=== PATIENT | female | born 1945 | race Caucasian/White ===

== ENCOUNTER 2018-02-18 17:00 | Outpatient (CLI) | payer MEDICARE, OTHER, SELFPAY ==
--- NOTE | 2018-02-18 16:34 | DI.DEXA_ITS ---
SYMPTOM/DIAGNOSIS: OSTEOPENIA, M85.88 DEXA SCAN: Dexa scan was performed according to the usual protocol. The findings for lumbar spine scanning are T score of -2.0. Findings for left hip scanning are T score of -.7 with left femoral neck T score of -2.0. Left forearm scanning shows T score of -1.4. CONCLUSION: Findings consistent with osteopenia according to the WHO criteria. Lateral vertebral scanogram shows no evidence of a vertebral compression fracture.
--- NOTE | 2018-02-18 16:34 | DI.MAMMO_ITS ---
SYMPTOMS/DIAGNOSIS: SCREENING, Z12.31 MAMMOGRAM: Mammograms were interpreted according to the usual protocol including computer analysis with CAD system, tomosynthesis and C view imaging. The breasts are heterogeneously dense. No dominant mass or clumped microcalcification is identified in either breast. Current examination is compared with the previous examinations including July 2016 and there has been no gross interval change in appearance in comparison with the previous studies. CONCLUSION: No specific evidence of malignancy at this time. Routine screening examinations are suggested at yearly intervals due to the family history of breast carcinoma. Category 1, breast density category C. MQSA ASSESSMENT OF FINDINGS: Negative. Category 1. Patient will receive a letter notifying them of these results. Bi-RADS category C. The breasts are heterogeneously dense, which may obscure small masses.
== END 2018-02-18 17:20 ==
PROVIDERS: PCP Family Medicine; Visit Provider Physician Assistant Medical
DX: M85.88 Other specified disorders of bone density and structure, other site (principal); Z12.31 Encounter for screening mammogram for malignant neoplasm of breast; Z80.3 Family history of malignant neoplasm of breast
CPT/HCPCS: 77063; 77067; 77080

== ENCOUNTER 2018-08-05 10:49 | Emergency (ER) | payer MEDICARE, OTHER, SELFPAY ==
[2018-08-05 11:01] VITALS: BP 149/67; PULSE 76; RESP 18; TEMP 36.6; O2SAT 99
--- NOTE | 2018-08-05 11:21 | DI.CT_ITS ---
SYMPTOMS/DIAGNOSIS: LEFT FLANK PAIN NONCONTRAST CT OF THE ABDOMEN AND PELVIS: Comparison is made with November,. There is moderate left hydronephrosis secondary to a 5 mm stone at the left ureterovesical junction. No additional urinary tract calculi are seen. There is no perinephric stranding. The visualized portions of the lung bases are clear. The liver, spleen, gallbladder, adrenals and pancreas are unremarkable. No bowel dilatation or inflammatory changes are seen. Diverticulosis is seen at the descending and sigmoid colon. The uterus and ovaries are unremarkable. IMPRESSION: Moderate left hydronephrosis secondary to a left 5 mm stone at the ureterovesical junction.
--- NOTE | 2018-08-05 11:23 | ED.GENADUL_ITS ---
Discharge Plan Disposition Patient Disposition: HOME Condition: Improving Discharge Details Chief Complaint: FlankPain Clinical Impression: Calculus of left ureter Primary Care Provider: Kathy Earl ED Provider: Artemio Bradford Home Meds and New Rx's Prescriptions: New cephalexin 500 mg tablet 500 mg PO TID 5 Days Qty: 15 RF: 0 Continued losartan 100 MG tablet 100 mg PO DAILY RF: 0 aspirin [Aspir-81] 81 MG tablet,delayed release (DR/EC) 81 mg PO DAILY RF: 0 chlorthalidone 25 MG tablet 25 mg PO DAILY RF: 0 Discharge Instructions Instructions: Kidney Stones (ED), How to Strain Your Urine (ED) Additional Instructions: Please strain your urine. Take antibiotics as prescribed We will ask our care management team to make you a follow-up appointment in urology clinic. Return to the emergency room for worsening pain, little bit of the fever, or any other acute concerns. Tylenol and/or ibuprofen as needed for pain Medical Decision Making 73-year-old female states she had the abrupt onset of left-sided flank pain radiating to groin this morning. Associated with increased urgency of and frequency of urination. She arrives afebrile with reassuring vital signs. She does not have a surgical abdomen. Differential diagnosis includes pyelonephritis, renal colic, bowel obstruction or ileus. Patient IV access established, given parenteral analgesia with ketorolac, a fluid bolus, referred for laboratory testing and CT images. Urinalysis negative nitrates, trace leuk esterase, 2 white blood cells as well as epithelial cells.; not consistent with acute infection. Labs otherwise reassuring but notable for elevated white blood cell count which may be stress demargination . Patient does have a 5 mm left UVJ stone with moderate hydronephrosis. She is minimally improved following the administration of fluids and ketorolac, states that she is ready for discharge. We discussed the findings of trace leuk esterase and 2 white blood cells in the urine, I feel I must cover her for UTI given the presence of left ureteral calculus. We will have her follow-up in urology clinic for recheck. She will be given a urine strainer for home. She is stable and improved Lab Data Lab results reviewed: Yes I reviewed the patient's lab results. Laboratory Results - last 24 hr 08/05/18 08/05/18 08/05/18 11:12 11:20 11:20 WBC 16.96 H RBC 4.54 Hgb 14.0 Hct 42.1 MCV 92.7 MCH 30.8 MCHC 33.3 RDW 13.5 Plt Count 264 MPV 10.0 Immature Gran % 0.3 Neutrophils % 88.3 Lymphocytes % 7.4 Monocytes % 3.7 Eosinophils % 0.1 Basophils % 0.2 Absolute Neutrophils 14.98 H Absolute Lymphocytes 1.26 Absolute Monocytes 0.63 Absolute Eosinophils 0.02 Absolute Basophils 0.03 Sodium Cancelled Potassium Cancelled Chloride Cancelled Carbon Dioxide Cancelled Anion Gap Cancelled BUN Cancelled Creatinine Cancelled Estimated GFR/1.73 m2 Cancelled Glucose Cancelled Calcium Cancelled Total Bilirubin Cancelled AST Cancelled ALT Cancelled Alkaline Phosphatase Cancelled Total Protein Cancelled Albumin Cancelled Urine Color Yellow Urine Clarity Clear Urine pH 6.5 Ur Specific [place] 1.020 Urine Protein Negative Urine Ketones Negative Urine Blood Moderate H Urine Nitrite Negative Urine Bilirubin Negative Urine Urobilinogen 0.2 Ur Leukocyte Esterase Trace H Urine RBC 10-20 H Urine WBC 0-2 Ur Epithelial Cells Moderate Urine Crystals Negative Urine Bacteria Few Urine Casts Negative Urine Mucus Moderate Ur Culture Indicated? No/sq. contamination Urine Glucose Negative HPI General Mode of arrival: ambulatory . Date/Time Provider Initiated Documentation: 08/05/18 11:15 . Limitations to Documentation: no limitations . Information obtained by: patient . History of Present Illness 73 year old F presents to the emergency department with the chief complaint of Left flank pain, described as moderate, Quality is described as aching, and is localized to the abdomen and left. Patient reports radiation to back. Patient started experiencing this hour(s) and it has been intermittent. No relieving factors improve symptom(s), No exacerbating factors reported . Patient notes no other symptoms.; denies fever/chills and nausea/vomiting. Patient did receive the following treatments prior to arrival, none Related Data Home Medications Medication Instructions Recorded Confirmed aspirin [Aspir-81] 81 mg PO DAILY 06/01/14 08/05/18 losartan 100 mg PO DAILY 06/01/14 08/05/18 chlorthalidone 25 mg PO DAILY 05/08/15 08/05/18 cephalexin 500 mg PO TID 5 Days #15 tab 08/05/18 Previous Rx's Medication Instructions Recorded cephalexin 500 mg PO TID 5 Days #15 tab 08/05/18 Allergies Allergy/AdvReac Type Severity Reaction Status Date / Time No Known Allergies Allergy Unverified 05/08/15 08:59 General Stated Complaint: FlankPain TREVON: 3 Review of Systems Review of Systems 8 systems reviewed and otherwise negative [facility] Social History Smoking and Tabacco status: Never Exam Narrative Exam Narrative: GEN: awake, alert, oriented 3. Pleasant, well groomed, interactive. HEAD: Normocephalic, atraumatic ENT: Mucous membranes moist, oropharynx unremarkable, External ear exam unremarkable EYES: PERRL, EOMI NECK: Full ROM, no CATINA, no menigismus CHEST/RESP: Nontender, clear to auscultation bilateral, no wheeze/rhonchi/rales CARDIOVASCULAR: RRR, no murmur, rub trish. 2+ Rad pulse bilateral ABDOMEN: Soft, nontender, no mass. +Bowel sounds. Minimal left flank tenderness EXT: Full ROM, no edema, no rash Neuro: Grossly normal neurologic exam, conversant, interactive. Psych: Speech fluent, thoughts congruent, affect normal Course Vital Signs Temperature 36.6 C 08/05/18 11:01 Pulse 76 08/05/18 11:01 Respiratory Rate 18 08/05/18 11:01 Blood Pressure 149/67 H 08/05/18 11:01 Pulse Oximetry 99 08/05/18 11:01 Temperature 36.6 C 08/05/18 11:01 Temperature Source Temporal Artery Scan 08/05/18 11:01 Pulse 76 08/05/18 11:01 Respiratory Rate 18 08/05/18 11:01 Respiratory Effort Non-Labored 08/05/18 11:04 Blood Pressure 149/67 H 08/05/18 11:01 Blood Pressure Position Sitting 08/05/18 11:01 Pulse Oximetry 99 08/05/18 11:01 Oxygen Delivery Method Room Air 08/05/18 11:01 Oxygen Flow Rate 0 08/05/18 11:01 Pain Level 8 08/05/18 11:12
[2018-08-05 11:26] LABS: Bilirubin Negative (Negative); Blood Moderate (Negative); Clarity Clear; Glucose Negative (Negative); Ketones Negative (Negative); Leukocyte Esterase Trace (Negative); Nitrite Negative (Negative); Urobilinogen 0.2 EU/dL (Up TO 0.2); pH 6.5 (5-8)
[2018-08-05] MEDS: Ketorolac 30 MG/ML VIAL 15 MG IVP (11:27)
[2018-08-05] MEDS: Normal Saline 1,000 ML 1000 ML IV (11:27)
[2018-08-05 11:31] LABS: Abs Immature Grans 0.05 k/cumm (0.0-0.09); Absolute Eosinophil Count 0.02 k/cumm (0.0-0.7); Absolute Lymphocyte Count 1.26 k/cumm (1.2-3.4); Basophils % 0.2; Eosinophils % 0.1; HCT 42.1 % (36.0-46.0); Immature Grans % 0.3; Lymphocytes % 7.4; Mean Corp. HGB Concentration 33.3 g/dL (32.0-36.0); Mean Corpuscular Hemoglobin 30.8 pg (27.0-33.0); Mean Corpuscular Volume 92.7 fL (80-95); Monocytes % 3.7; Neutrophils % 88.3; Platelet Count 264 x1000/uL (130-400); RBC 4.54 m/cumm (4.00-5.20); RBC Distribution Width 13.5 % (11.7-14.6); White Blood Cell Count 16.96 k/cumm (4.4-10.8)
[2018-08-05 11:36] LABS: Absolute Basophil Count 0.03 k/cumm (0.0-0.2); Absolute Monocyte Count 0.63 k/cumm (0.11-0.7); Absolute Neutrophil Count 14.98 k/cumm (1.2-6.7)
[2018-08-05 11:37] LABS: WBC 0-2 HPF (0-5)
[2018-08-05 11:38] LABS: Bacteria Few HPF (Negative); C & S Indicated? No/Sq. Contamination; Casts Negative LPF (Negative); Crystals Negative HPF (Negative); Epithelial Cells Moderate HPF (Negative); Mucus Moderate (Negative)
--- NOTE | 2018-08-05 12:08 | NUR.NOTE ---
Nursing Note: Off unit at CT
[2018-08-05 12:12] VITALS: BP 125/60; PULSE 76; RESP 18; TEMP 36.5; O2SAT 100
[2018-08-05 12:43] LABS: ALT 30 U/L (12-78); AST 21 U/L (15-37); Albumin 3.3 g/dL (3.4-5.0); Alkaline Phosphatase 105 U/L (46-116); Anion Gap 9.5 mmol/L (3-11); BUN 34 mg/dL (7-18); Bilirubin, Total 0.4 mg/dL (0.2-1.0); CO2 28.5 mmol/L (21.0-32.0); CREATININE 1.87 mg/dL (0.55-1.02); Calcium 8.2 mg/dL (8.5-10.1); Chloride 104 mmol/L (98-107); Estimated GFR 26.47 (mL/min/1.73m2); Glucose 111 mg/dL (70-100); Potassium 3.6 mmol/L (3.5-5.1); Sodium 142 mmol/L (136-145); Total Protein 6.6 g/dL (6.4-8.2)
--- NOTE | 2018-08-08 07:58 | PDOC.ERCMPRO ---
Care Management Progress Note 08/08-Dr. Bradford requested assistance with a urology f/u in L kidney stone. Referral faxed to [facility] this am.
== END 2018-08-05 13:05 | disposition home or self-care (01) ==
PROVIDERS: Emergency Provider Emergency Medicine; PCP Family Medicine
DX: N13.1 Hydronephrosis with ureteral stricture, not elsewhere classified (principal)
CPT/HCPCS: 36415; 80053; 96361; 96374; 99284; 74176; 81003; 81015; 85025; J1885

== ENCOUNTER → 2018-09-30 09:02 | Outpatient (BNVA) | payer MEDICARE, OTHER, SELFPAY | PROVIDERS: PCP Family Medicine; Visit Provider Nurse Practitioner Gerontology | DX: Z87.442 Personal history of urinary calculi (principal); N95.2 Postmenopausal atrophic vaginitis; I10 Essential (primary) hypertension | CPT/HCPCS: 99204; 99215 ==

== ENCOUNTER 2020-04-20 10:17 | Emergency (ER) | payer MEDICARE, OTHER, SELFPAY ==
[2020-04-20] VITALS (59 sets, daily range): BP systolic 87–120; BP diastolic 42–83; PULSE 63–93; RESP 15–27; TEMP 36.6; O2SAT 92–98
--- NOTE | 2020-04-20 10:24 | ED.GENADUL_ITS ---
Discharge Plan Disposition Patient Disposition: HOME Condition: Stable Discharge Details Clinical Impression: Acute respiratory infection, COVID-19 determined by clinical diagnostic criteria Primary Care Provider: Kathy Earl ED Provider: Maria Guadalupe Falcon Home Meds and New Rx's Prescriptions: Continued estradiol [Estrace] 0.01 % (0.1 mg/gram) cream 1 g VG .COMPLEX Qty: 42.5 RF: 4 losartan 100 MG tablet 100 mg PO DAILY RF: 0 aspirin [Aspir-81] 81 MG tablet,delayed release (DR/EC) 81 mg PO DAILY RF: 0 chlorthalidone 25 MG tablet 25 mg PO DAILY RF: 0 No Action dexamethasone [Decadron] 6 mg tablet 6 mg PO DAILY Qty: 5 RF: 0 enoxaparin 40 mg/0.4 mL syringe 40 mg subcut DAILY Qty: 12 RF: 0 Discharge Instructions Additional Instructions: Please return immediately to the emergency department if you develop any new or worsening symptoms, if your condition does not improve as expected, or if you become otherwise concerned. It is extremely important that you call soon as possible to make an appointment to be seen in follow-up for this visit by your primary care doctor. Your Covid results are pending. Based on your symptoms it is highly likely that you do have the coronavirus. It is extremely important that you isolate at home and wear a mask around any caregivers/family members. Please check your home oxygen frequently with the pulse oximeter that was provided to you. If your oxygen level dropped to 90% or below, please return immediately to the emergency department as we discussed. Please make sure you drink plenty of fluids. Stand Alone Forms: PENDING COVID-19 TESTING Referrals: Kathy Earl [Primary Care Provider] - Discharge Data Discharge Date/Time-TO BE ENTERED AT DEPARTURE: 04/20/20 16:59 Medical Decision Making Preeti Draper is a 75-year-old woman with a history of hypertension presenting to the emergency department with fever, vomiting, diarrhea 1 week ago after being in [place] for several days, symptoms resolved the next day, now with continued cough and shortness of breath with exertion in addition to generalized weakness and fatigue. O2 sat 93 to 95% on room air on initial examination, vitals otherwise within normal. Concern for likely Covid infection given constellation of symptoms, other pneumonia, possible pulmonary embolism. Doubt acute coronary syndrome. Exam/history is not consistent with sepsis, meningitis, acute intra-abdominal process. Plan for EKG, screening labs, judicious IV fluids, chest x-ray, telemetry. Will monitor and reassess. D-dimer negative when age-adjusted. No tachycardia. Will hold off on CT chest at this point given GFR less than 30, no tachycardia, no shortness of breath at rest, negative D-dimer. Chest x-ray negative. Labs reviewed, multiple abnormalities including hypokalemia, anion gap 12.4, creatinine 1.7. Labs consistent with Covid infection. Ambulatory pulse ox showed patient with O2 sats 95 to 97% on room air. Patient with sats greater than 95% on room air multiple reassessments. Steroids not indicated. I had a lengthy discussion with patient regarding risks/benefits of admission versus discharge to home with pulse ox and close follow-up. Patient prefers to be discharged to home. Patient given pulse oximeter, instructed on use and when to return precautions. I had a lengthy discussion with Patient regarding return to emergency department precautions, home care, isolation at home while awaiting coronavirus testing result, and importance of outpatient follow-up. Pt verbalizes understanding of the plan and is amenable. Patient discharged to home with clear plan for outpatient follow-up. All questions were answered. Disposition decision was made weighing the risks and benefits of hospitalization versus outpatient treatment, the risk for further decompensation, and the patient's wishes. Medical Records Medical records reviewed: Yes I reviewed the patient's medical records. Imaging Data Radiologic Study: Attestation: I personally reviewed and interpreted this imaging study as follows: Radiologist's impression: EXAM: XR PORTABLE CHEST AP CLINICAL HISTORY: SOB, PUI TECHNIQUE: 2D digital imaging was performed. COMPARISON: CR CHEST 2 VIEWS PA,LAT from 05/08/2015 FINDINGS: MEDIASTINUM: Normal. HEART: Normal. PULMONARY VASCULATURE: Normal. LUNGS: Clear. PLEURAL SPACE: No pleural effusion or pneumothorax. BONE:Within normal limits for the patient's age. OTHER FINDINGS:Normal. IMPRESSION: No acute pulmonary findings. Lab Data Lab results reviewed: Yes I reviewed the patient's lab results. Labs: Laboratory Tests Range/Units 04/20/20 04/20/20 04/20/20 11:10 11:10 11:10 WBC (4.4-10.8) 10^3/uL 6.23 RBC (3.93-5.22) 10^6/uL 4.72 Hgb (11.2-15.7) g/dL 14.6 Hct (36.0-46.0) % 42.6 MCV (80-95) fL 90.3 MCH (27.0-33.0) pg 30.9 MCHC (32.0-36.0) % 34.3 RDW (11.7-14.6) % 12.1 Plt Count (130-400) 10^3/uL 225 MPV (8.0-11.0) fL 9.9 Immature Gran % 0.6 Neutrophils % 78.6 Lymphocytes % 13.2 Monocytes % 7.4 Eosinophils % 0.0 Basophils % 0.2 Nucleated RBC % % 0 Absolute Neutrophils (1.2-6.7) 10^3/uL 4.90 Absolute Lymphocytes (1.2-3.4) 10^3/uL 0.82 L Absolute Monocytes (0.1-0.8) 10^3/uL 0.46 Absolute Eosinophils (0.0-0.7) 10^3/uL 0.00 Absolute Basophils (0.0-0.2) 10^3/uL 0.01 D-Dimer (<500) ng/mlFEU VBG Lactate (0.6-1.4) mmol/L 1.2 Sodium (136-145) mmol/L 137 Potassium (3.5-5.1) mmol/L 3.0 L Chloride (98-107) mmol/L 97 L Carbon Dioxide (21.0-32.0) mmol/L 27.6 Anion Gap (3-11) mmol/L 12.4 H BUN (7-18) mg/dL 38 H Creatinine (0.55-1.02) mg/dL 1.72 H Estimated GFR/1.73 m2 (mL/min/1.73m2) 28.99 Glucose (74-106) mg/dL 100 Calcium (8.5-10.1) mg/dL 8.5 Ferritin (8-252) ng/mL 484 H Total Bilirubin (0.2-1.0) mg/dL 0.5 AST (15-37) U/L 57 H ALT (14-59) U/L 57 Alkaline Phosphatase (46-116) U/L 100 Lactate Dehydrogenase (81-234) U/L 343 H Troponin I (<0.06) ng/mL < 0.05 Total Protein (6.4-8.2) g/dL 7.0 Albumin (3.4-5.0) g/dL 3.3 L Urine Color (Yellow) Urine Clarity (Clear) Urine pH (5-8) Ur Specific [place] (1.005-1.025) Urine Protein (Negative) mg/dL Urine Ketones (Negative) mg/dL Urine Blood (Negative) Urine Nitrite (Negative) Urine Bilirubin (Negative) Urine Urobilinogen (Up TO 0.2) EU/dL Ur Leukocyte Esterase (Negative) Urine RBC (0-2) HPF Urine WBC (0-5) HPF Ur Epithelial Cells (Negative) HPF Urine Crystals (Negative) HPF Urine Bacteria (Negative) HPF Urine Casts (Negative) LPF Urine Mucus (Negative) Urine Other (Negative) Ur Culture Indicated? Urine Glucose (Negative) mg/dL Range/Units 04/20/20 04/20/20 04/20/20 11:10 11:35 14:20 WBC (4.4-10.8) 10^3/uL RBC (3.93-5.22) 10^6/uL Hgb (11.2-15.7) g/dL Hct (36.0-46.0) % MCV (80-95) fL MCH (27.0-33.0) pg MCHC (32.0-36.0) % RDW (11.7-14.6) % Plt Count (130-400) 10^3/uL MPV (8.0-11.0) fL Immature Gran % Neutrophils % Lymphocytes % Monocytes % Eosinophils % Basophils % Nucleated RBC % % Absolute Neutrophils (1.2-6.7) 10^3/uL Absolute Lymphocytes (1.2-3.4) 10^3/uL Absolute Monocytes (0.1-0.8) 10^3/uL Absolute Eosinophils (0.0-0.7) 10^3/uL Absolute Basophils (0.0-0.2) 10^3/uL D-Dimer (<500) ng/mlFEU 699 H VBG Lactate (0.6-1.4) mmol/L Sodium (136-145) mmol/L Potassium (3.5-5.1) mmol/L Chloride (98-107) mmol/L Carbon Dioxide (21.0-32.0) mmol/L Anion Gap (3-11) mmol/L BUN (7-18) mg/dL Creatinine (0.55-1.02) mg/dL Estimated GFR/1.73 m2 (mL/min/1.73m2) Glucose (74-106) mg/dL Calcium (8.5-10.1) mg/dL Ferritin (8-252) ng/mL Total Bilirubin (0.2-1.0) mg/dL AST (15-37) U/L ALT (14-59) U/L Alkaline Phosphatase (46-116) U/L Lactate Dehydrogenase (81-234) U/L Troponin I (<0.06) ng/mL < 0.05 Total Protein (6.4-8.2) g/dL Albumin (3.4-5.0) g/dL Urine Color (Yellow) Yellow Urine Clarity (Clear) Sl cloudy Urine pH (5-8) 5.5 Ur Specific [place] (1.005-1.025) 1.020 Urine Protein (Negative) mg/dL Trace H Urine Ketones (Negative) mg/dL 15 H Urine Blood (Negative) Negative Urine Nitrite (Negative) Negative Urine Bilirubin (Negative) Negative Urine Urobilinogen (Up TO 0.2) EU/dL 0.2 Ur Leukocyte Esterase (Negative) Small H Urine RBC (0-2) HPF 3-5 H Urine WBC (0-5) HPF 10-20 H Ur Epithelial Cells (Negative) HPF Moderate Urine Crystals (Negative) HPF Negative Urine Bacteria (Negative) HPF Many Urine Casts (Negative) LPF Negative Urine Mucus (Negative) Negative Urine Other (Negative) Rare renal Ur Culture Indicated? No/sq. contamination Urine Glucose (Negative) mg/dL Negative ECG Data Attestation: I personally reviewed and interpreted this ECG (s) as follows: Interpretation: EKG shows normal sinus rhythm at 70, normal axis, artifact present with nonspecific ST changes, no STEMI, nondiagnostic EKG HPI General Mode of arrival: ambulatory . Date/Time Provider Initiated Documentation: 04/20/20 10:24 . Limitations to Documentation: no limitations . Information obtained by: patient, RN notes reviewed and old records reviewed . HPI Narrative: Preeti Draper is a 75-year-old woman with history of hypertension presenting to the emergency department with cough, malaise. Patient reports that she traveled to [place] 04/07 through 04/14. Patient reports that on 04/14 she developed generalized malaise, vomiting, diarrhea, fever, and cough. Patient reports that fever, vomiting, and diarrhea had resolved by the next day, but she has continued to have fatigue and general malaise. She reports intermittent cough. Patient denies shortness of breath at rest, but does note shortness of breath with exertion. Patient was supposed to have Covid testing yesterday and then again this morning, but had to cancel both appointments secondary to feeling generally unwell. Patient reports that she has been eating and drinking as usual at home. She denies pain, numbness, focal weakness, rash. Related Data Home Medications Medication Instructions Recorded Confirmed aspirin [Aspir-81] 81 mg PO DAILY 06/01/14 04/21/20 losartan 100 mg PO DAILY 06/01/14 04/21/20 chlorthalidone 25 mg PO DAILY 05/08/15 04/21/20 estradiol 1 g VG .COMPLEX #42.5 gm 11/14/18 04/21/20 dexamethasone [Decadron] 6 mg PO DAILY #5 tab 04/25/20 enoxaparin 40 mg SUBCUT DAILY #12 ml 04/25/20 Previous Rx's Medication Instructions Recorded estradiol 1 g VG .COMPLEX #42.5 gm 11/14/18 dexamethasone [Decadron] 6 mg PO DAILY #5 tab 04/25/20 enoxaparin 40 mg SUBCUT DAILY #12 ml 04/25/20 Allergies Allergy/AdvReac Type Severity Reaction Status Date / Time No Known Allergies Allergy Verified 04/21/20 00:02 General TREVON: 3 Review of Systems Narrative: Constitutional: Reports fatigue, generalized weakness, fever 1 week ago Eyes: denies eye pain ENT: denies ear pain, dental pain, sore throat Cardiovascular: denies chest pain Respiratory: Reports SOB on exertion, cough GI: denies abdominal pain, reports vomiting, diarrhea 1 week ago now resolved : denies flank pain MSK: denies back pain, neck pain, arthralgias, myalgias Skin: denies rash Neuro: denies headaches, numbness, focal weakness [facility] Medical History Hypertension 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, unilateral, left ear, 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 side (11/22/16) Vaginal atrophy Surgical History S/P appendectomy Family History Sister Breast cancer Social History Smoking/Tobacco Use Status: Never Smoking risk assessment performed?: Yes Alcohol Intake: current Alcohol Intake frequency: a few times a week Drug use: Never Substance use type: does not use current occupation: [employer] Do you feel safe at home: Yes Do you feel safe in your relationship?: Yes Exam Narrative Exam Narrative: Constitutional: well and [id number], pleasant, conversing normally HENT: head atraumatic/normocephalic/normal inspection, mucous membranes moist Eyes: conjunctiva normal, sclera normal, pupils 3mm b/l Neck: no stridor, normal ROM, trachea midline Chest: normal inspection Resp: normal work of breathing, LCTAB Cardio: normal rate, normal rhythm, no murmur appreciated GI: abdomen soft, non-tender, non-distended Back: normal inspection, no rash Skin: warm, dry, normal color, no rash Neuro: alert, not altered, grossly non-focal, normal tone Ext: no edema, no posterior calf tenderness to palpation Psych: normal mood, normal affect, normal behavior
[2020-04-20 11:25] LABS: Lactate 1.2 mmol/L (0.6-1.4)
[2020-04-20 11:32] LABS: Abs Immature Grans 0.04 10^3/uL (0.0-0.06); Absolute Basophil Count 0.01 10^3/uL (0.0-0.2); Absolute Lymphocyte Count 0.82 10^3/uL (1.2-3.4); Absolute Monocyte Count 0.46 10^3/uL (0.1-0.8); Basophils % 0.2; HCT 42.6 % (36.0-46.0); HGB 14.6 g/dL (11.2-15.7); Immature Grans % 0.6; Lymphocytes % 13.2; MCH 30.9 pg (27.0-33.0); MCHC 34.3 % (32.0-36.0); MCV 90.3 fL (80-95); MPV 9.9 fL (8.0-11.0); Monocytes % 7.4; Neutrophils % 78.6; Nucleated RBC 0 %; Platelet Count 225 10^3/uL (130-400); RBC 4.72 10^6/uL (3.93-5.22); RDW 12.1 % (11.7-14.6); WBC 6.23 10^3/uL (4.4-10.8)
[2020-04-20 11:43] LABS: Bilirubin Negative (Negative); Blood Negative (Negative); Clarity Sl Cloudy (Clear); Glucose Negative (Negative); Ketones 15 mg/dL (Negative); Leukocyte Esterase Small (Negative); Nitrite Negative (Negative); Urobilinogen 0.2 EU/dL (Up TO 0.2); pH 5.5 (5-8)
--- NOTE | 2020-04-20 11:45 | DI.RAD_ITS ---
EXAM: XR PORTABLE CHEST AP CLINICAL HISTORY: SOB, PUI TECHNIQUE: 2D digital imaging was performed. COMPARISON: CR CHEST 2 VIEWS PA,LAT from 05/08/2015 FINDINGS: MEDIASTINUM: Normal. HEART: Normal. PULMONARY VASCULATURE: Normal. LUNGS: Clear. PLEURAL SPACE: No pleural effusion or pneumothorax. BONE:Within normal limits for the patient's age. OTHER FINDINGS:Normal. IMPRESSION: No acute pulmonary findings. DATA REPOSITORY: RADIATION DOSE DELIVERED:
[2020-04-20] MEDS: Omnipaque 350 MG/ML 100 ML BTL IJ (11:49)
[2020-04-20 11:53] LABS: ALT 57 U/L (14-59); AST 57 U/L (15-37); Albumin 3.3 g/dL (3.4-5.0); Alkaline Phosphatase 100 U/L (46-116); Anion Gap 12.4 mmol/L (3-11); BUN 38 mg/dL (7-18); Bilirubin, Total 0.5 mg/dL (0.2-1.0); CO2 27.6 mmol/L (21.0-32.0); CREATININE 1.72 mg/dL (0.55-1.02); Calcium 8.5 mg/dL (8.5-10.1); Chloride 97 mmol/L (98-107); Estimated GFR 28.99 (mL/min/1.73m2); Ferritin 484 ng/mL (8-252); Glucose 100 mg/dL (74-106); Sodium 137 mmol/L (136-145)
[2020-04-20 11:54] LABS: Troponin I < 0.05 ng/mL (<0.06)
[2020-04-20 11:54] LABS: Epithelial Cells Moderate HPF (Negative); Other Cells Rare Renal (Negative)
[2020-04-20 11:55] LABS: Bacteria Many HPF (Negative); C & S Indicated? No/Sq. Contamination; Casts Negative LPF (Negative); Crystals Negative HPF (Negative); Mucus Negative (Negative)
[2020-04-20 12:04] LABS: LDH 343 U/L (81-234)
[2020-04-20] MEDS: Normal Saline 500 ML IV (12:20)
[2020-04-20 12:45] LABS: D-Dimer 699 ng/mlFEU (<500)
[2020-04-20] MEDS: Potassium Chloride 20 MEQ TABCR 40 MEQ PO (12:45)
[2020-04-20 14:48] LABS: Troponin I < 0.05 ng/mL (<0.06)
--- NOTE | 2020-04-20 16:00 | RT.EKG_ITS ---
APPROVED REPORT Exam: Resting ECG Patient Location: E HR:70 bpm ECG Measurements Heart Rate 70 AXIS WV 159 P 70 QRSd 89 QRS -7 QT 419 T 32 QTc 453 Conclusion Sinus rhythm...normal P axis, V-rate 60- 99 normal sinus rhythm at 70, normal axis, artifact present with nonspecific ST changes, no STEMI, nondi agnostic EKG
--- NOTE | 2020-04-20 21:31 | W.ED.FU ---
Date of service: 04/20/20 Follow Up Plan: Patient seen earlier today with symptoms concerning for COVID. She was sent home with portable pulse ox. called tonight stating she was having episodes of pulse ox that read 89-90% Most recent pulse ox was 94%. Patient does not feel short of breath. Lab called minutes after called us and reported a positive COVID swab from this morning. Discussed with . Asked to monitor patient closely and have her do ambulatory saturations. Insturctions to return if saturations consistently below 90 or if she feels short of breath, confused, any other concerns.
[2020-04-21 08:29] LABS: COVID-19 RT-PCR UVMMC Result Positive (Negative)
== END 2020-04-20 16:59 | disposition home or self-care (01) ==
PROVIDERS: Emergency Provider Student in an Organized Health Care Education/Training Program; PCP Family Medicine
DX: U07.1 COVID-19 (principal); J22 Unspecified acute lower respiratory infection; R05 Cough; R06.02 Shortness of breath; E87.6 Hypokalemia; E87.2 Acidosis; R94.4 Abnormal results of kidney function studies; I10 Essential (primary) hypertension
CPT/HCPCS: 80053; 93005; U0003; 71045; 81003; 81015; 82728; 83605; 83615; 84484; 85025; 85379; 93010; J3490

== ENCOUNTER 2020-04-20 23:45 | Inpatient (IN) | payer MEDICARE, OTHER, SELFPAY ==
--- NOTE | 2020-04-20 00:42 | DI.RAD_ITS ---
EXAM: XR PORTABLE CHEST AP CLINICAL HISTORY: COVID + with increase SOB TECHNIQUE: 2D digital imaging was performed. COMPARISON: CR XR PORTABLE CHEST AP from 04/20/2020 FINDINGS: MEDIASTINUM: Normal. HEART: Normal. PULMONARY VASCULATURE: Normal. LUNGS: Clear. PLEURAL SPACE: No pleural effusion or pneumothorax. BONE:Within normal limits for the patient's age. OTHER FINDINGS:Normal. IMPRESSION: No acute pulmonary findings. DATA REPOSITORY: RADIATION DOSE DELIVERED:
--- NOTE | 2020-04-20 23:45 | RT.EKG_ITS ---
APPROVED REPORT Exam: Resting ECG Patient Location: E HR:74 bpm ECG Measurements Heart Rate 74 AXIS VT 160 P 74 QRSd 91 QRS -19 QT 384 T 37 QTc 427 Conclusion Sinus rhythm...normal P axis, V-rate 60- 99 Normal Electrocardiogram
[2020-04-20 23:50] VITALS: BP 120/63; PULSE 77; RESP 18; TEMP 36.9; O2SAT 91
--- NOTE | 2020-04-20 23:56 | ED.GENADUL_ITS ---
Discharge Plan Disposition Patient Disposition: [facility] INPATIENT Condition: Fair Discharge Details Clinical Impression: COVID-19 virus infection, Hypoxemia Primary Care Provider: Kathy Earl ED Provider: Rob Carranza [place] Meds and New Rx's Prescriptions: No Action estradiol [Estrace] 0.01 % (0.1 mg/gram) cream 1 g VG .COMPLEX Qty: 42.5 RF: 4 losartan 100 MG tablet 100 mg PO DAILY RF: 0 aspirin [Aspir-81] 81 MG tablet,delayed release (DR/EC) 81 mg PO DAILY RF: 0 chlorthalidone 25 MG tablet 25 mg PO DAILY RF: 0 Medical Decision Making Patient presenting with increased shortness of breath with decrease saturations with activity at home, confirmed by EMS on their arrival. Known COVID positive based on test this morning. Had some concerning labs earlier. Plan to repeat labs and CXR. Monitor saturations here and titrate oxygen for saturations around 92%. Consider steroids. While here noted to have sats drop to 88% at rest. Elected to start on oxygen NC. Decadron ordered. SQ heparin started. CXR remains clear. D-dimer and ferritin going up. Kidney function stable but with GFR around 30. Will initiate awake proning and admit to hospitalist for further management. Medical Records Medical records reviewed: Yes I reviewed the patient's medical records. Lab Data Lab results reviewed: Yes I reviewed the patient's lab results. ECG Data Attestation: I personally reviewed and interpreted this ECG (s) as follows: Interpretation: see EKG HPI General Mode of arrival: EMS . Date/Time Provider Initiated Documentation: 04/20/20 23:55 . Limitations to Documentation: no limitations . Information obtained by: patient, RN notes reviewed and old records reviewed . HPI Narrative: Patient presents to ED by ambulance with increasing SOB at home. She was seen here earlier and presumed COVID patient. Her resting saturation and ambulatory saturations here were always greater than 92%. Her CXR was negative. Labs were a little concerning but it was felt that she could go home with portable pulse ox and isolate/monitor at home. Her called in tonight and I spoke to him. She was having some dips in her pulse ox at rest to 89-90%. I asked her to go up the stairs in her house and monitor her levels. She reports that consistently would get SOB going up the stairs, with heart rate going up to 110 and pusle ox going down to 86%. I suggested she should come back to ED. Ambulance was called because did not think he could get her here. Patient arrives in no distress. She did have fever tonight. She has increase cough. She denies chest pain. She denies leg pain or swelling. Sounds like she was ill last week while in [place], started to feel a little better and then got worse with cough, fever, SOB. Patient's COVID test from this morning in back and is positive. Related Data Home Medications Medication Instructions Recorded Confirmed aspirin [Aspir-81] 81 mg PO DAILY 06/01/14 04/21/20 losartan 100 mg PO DAILY 06/01/14 04/21/20 chlorthalidone 25 mg PO DAILY 05/08/15 04/21/20 estradiol 1 g VG .COMPLEX #42.5 gm 11/14/18 04/21/20 Previous Rx's Medication Instructions Recorded estradiol 1 g VG .COMPLEX #42.5 gm 11/14/18 Allergies Allergy/AdvReac Type Severity Reaction Status Date / Time No Known Allergies Allergy Verified 04/21/20 00:02 General TREVON: 3 Review of Systems Narrative: 03/16 Review of Systems completed and is negative except as stated above in HPI (Systems reviewed: Const, Eyes, ENT, Resp, CV, GI, , MSK, Skin, Neuro) [facility] Medical History Hypertension 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, unilateral, left ear, 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 side (11/22/16) Vaginal atrophy Surgical History S/P appendectomy Family History (Updated 10/09/18 @ 14:43 by Candelaria Avendaño NP) Sister Breast cancer Social History Smoking/Tobacco Use Status: Never Smoking risk assessment performed?: Yes Alcohol Intake: current Alcohol Intake frequency: a few times a week Drug use: Never Substance use type: does not use current occupation: Assembler [employer] - [employer] Do you feel safe at home: Yes Do you feel safe in your relationship?: Yes Exam Narrative Exam Narrative: Const: WDWN female in NAD. HEENT: NC/AT. Normal facial exam. Eyes: Normal conjunctiva and sclera. Neck: Supple. Trachea midline. Lungs: Normal respiratory effort. Cor: Good radial pulses. GI: Soft. NT/ND. No guarding or rebound. Neuro: A+O x 3. Normal speech, mentation, gait. Cranial nerves II - XII grossly intact. No gross motor or sensory deficit. Ext: No C/C/E. No calf tenderness. Skin: Warm and dry without rash.
[2020-04-21] VITALS (38 sets, daily range): BP systolic 85–116; BP diastolic 44–65; PULSE 60–87; RESP 16–28; TEMP 36–36.9; O2SAT 88–98
[2020-04-21 00:12] LABS: Abs Immature Grans 0.04 10^3/uL (0.0-0.06); Absolute Basophil Count 0.01 10^3/uL (0.0-0.2); Absolute Eosinophil Count 0.01 10^3/uL (0.0-0.7); Absolute Lymphocyte Count 1.01 10^3/uL (1.2-3.4); Absolute Monocyte Count 0.55 10^3/uL (0.1-0.8); Absolute Neutrophil Count 5.13 10^3/uL (1.2-6.7); Basophils % 0.1; Eosinophils % 0.1; HCT 39.7 % (36.0-46.0); HGB 13.9 g/dL (11.2-15.7); Immature Grans % 0.6; Lactate 0.8 mmol/L (0.6-1.4); MCH 31.2 pg (27.0-33.0); MPV 9.9 fL (8.0-11.0); Monocytes % 8.1; Neutrophils % 76.1; Nucleated RBC 0 %; Platelet Count 224 10^3/uL (130-400); RBC 4.46 10^6/uL (3.93-5.22); RDW-SD 39.2 fL; WBC 6.75 10^3/uL (4.4-10.8)
[2020-04-21 00:31] LABS: ALT 60 U/L (14-59); AST 59 U/L (15-37); Alkaline Phosphatase 103 U/L (46-116); Anion Gap 10.6 mmol/L (3-11); BUN 34 mg/dL (7-18); Bilirubin, Total 0.6 mg/dL (0.2-1.0); C-Reactive Protein 3.56 mg/dL (0.0-0.3); CO2 25.4 mmol/L (21.0-32.0); CREATININE 1.42 mg/dL (0.55-1.02); Calcium 8.1 mg/dL (8.5-10.1); Chloride 99 mmol/L (98-107); Estimated GFR 36.16 (mL/min/1.73m2); Glucose 98 mg/dL (74-106); LDH 278 U/L (81-234); Potassium 3.3 mmol/L (3.5-5.1); Sodium 135 mmol/L (136-145); Total Protein 6.6 g/dL (6.4-8.2)
[2020-04-21 00:32] LABS: Troponin I < 0.05 ng/mL (<0.06)
--- NOTE | 2020-04-21 00:47 | DI.VRAD_ITS ---
PROCEDURE INFORMATION: Exam: XR Chest, 1 View Exam date and time: 04/20/2020 12:30 AM Age: 75 years old Clinical indication: Patient HX: Covid positive patient with increased shortness of breath TECHNIQUE: Imaging protocol: XR of the chest Views: 1 view. COMPARISON: CR XR PORTABLE CHEST AP 04/20/2020 12:04 PM FINDINGS: Lungs: Again noted is mild central peribronchial thickening. No pulmonary airspace opacities are identified. There is no pulmonary vascular congestion. Pleural space: No layering pleural effusions are identified. Heart/Mediastinum: Heart size is normal. Bones/joints: Unremarkable. IMPRESSION: 1. Mild central peribronchial thickening again noted suggesting history of bronchitis. 2. No pulmonary airspace opacities identified. Dictated and Authenticated by: Latrell Sarah MD. Ordering:ALDO Rivas MD
[2020-04-21 00:49] LABS: D-Dimer 873 ng/mlFEU (<500)
[2020-04-21 00:56] LABS: Ferritin 529 ng/mL (8-252)
[2020-04-21] MEDS: Heparin 5,000 UNITS/ML VIAL 5000 UNITS SC ×2 (01:05→08:33)
[2020-04-21] MEDS: Dexamethasone 10 MG/ML VIAL 6 MG IVP (01:05)
[2020-04-21 01:24] LABS: Procalcitonin 0.1 ng/mL
--- NOTE | 2020-04-21 01:27 | HPE_ITS ---
Date of service: 04/21/20 Time of Service: 01:28 Assessment and Plan Assessment and plan (1) COVID-19 virus infection: Status: Acute Assessment and plan: Covid-19, with increasing O2 requirements. Will continue steroids, heparin and Remdesivir (note GFR just above cutoff for latter). Some concern for BP, will bolus fluids and hold ARB until such time as BP stabilizes. Reviewed ADs. Unable to fully process at this time but requests Full Code and would specifically accept ventilator if necessary. History of Present Illness History of Present Illness Chief Complaint: SOB Narrative: 75 female reports malaise and diarrhea one week [employer], then cough. Seen yesterday AM, concern for possible Covid, sent home on monitoring. Returns reporting increasing ROBERTS with sats dropping to 80s with exertion. In interim Coviid testing positive. In ER w/u of note for sats high 80s RA, CXR with peribronchial thickening, and labs of note for elevations of LDH, d-Dimer and ferritin. Patient given dexamethasone, heparin and is being ordered for Remdesivir. States she eels comfortable at present. Reports visit to [place] prior to illness to assist with the election Review of Systems All systems reviewed & are unremarkable except as noted in HPI and below PFSH Medical History Hypertension 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, unilateral, left ear, 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 side (11/22/16) Vaginal atrophy Surgical History S/P appendectomy Family History Sister Breast cancer Social History Smoking/Tobacco Use Status: Never Smoking risk assessment performed?: Yes Alcohol Intake: current Alcohol Intake frequency: a few times a week Drug use: Never Substance use type: does not use current occupation: [employer] - [employer] Do you feel safe at home: Yes Do you feel safe in your relationship?: Yes Meds Home Medications and Allergies Home Medications Medication Instructions Recorded Confirmed Type aspirin [Aspir-81] 81 mg PO DAILY 06/01/14 04/21/20 History losartan 100 mg PO DAILY 06/01/14 04/21/20 History chlorthalidone 25 mg PO DAILY 05/08/15 04/21/20 History estradiol 1 g VG .COMPLEX #42.5 gm 11/14/18 04/21/20 Rx Allergies Allergy/AdvReac Type Severity Reaction Status Date / Time No Known Allergies Allergy Verified 04/21/20 00:02 Exam Narrative Exam Narrative: 87/50, 74, 36.9, 20, 95% 2L. HEENT unremarkable; neck supple; lungs rales right base; heart occ ectopic, w/o MRG; abdomen soft and NT w/o HSM; extremities w/o edema; neuro Ox3, nonfocal Results Labs Result diagrams: 04/21/20 00:00 04/21/20 00:00 Labs: Laboratory Results - last 24 hr 04/21/20 04/21/20 04/21/20 00:00 00:00 00:00 WBC 6.75 RBC 4.46 Hgb 13.9 Hct 39.7 MCV 89.0 MCH 31.2 MCHC 35.0 RDW 12.0 Plt Count 224 MPV 9.9 Immature Gran % 0.6 Neutrophils % 76.1 Lymphocytes % 15.0 Monocytes % 8.1 Eosinophils % 0.1 Basophils % 0.1 Nucleated RBC % 0 Absolute Neutrophils 5.13 Absolute Lymphocytes 1.01 L Absolute Monocytes 0.55 Absolute Eosinophils 0.01 Absolute Basophils 0.01 D-Dimer VBG Lactate 0.8 Sodium 135 L Potassium 3.3 L Chloride 99 Carbon Dioxide 25.4 Anion Gap 10.6 BUN 34 H Creatinine 1.42 H Estimated GFR/1.73 m2 36.16 Glucose 98 Calcium 8.1 L Ferritin 529 H Total Bilirubin 0.6 AST 59 H ALT 60 H Alkaline Phosphatase 103 Lactate Dehydrogenase 278 H Troponin I < 0.05 C-Reactive Protein 3.56 H Total Protein 6.6 Albumin 3.0 L Procalcitonin 0.1 04/21/20 00:00 WBC RBC Hgb Hct MCV MCH MCHC RDW Plt Count MPV Immature Gran % Neutrophils % Lymphocytes % Monocytes % Eosinophils % Basophils % Nucleated RBC % Absolute Neutrophils Absolute Lymphocytes Absolute Monocytes Absolute Eosinophils Absolute Basophils D-Dimer 873 H VBG Lactate Sodium Potassium Chloride Carbon Dioxide Anion Gap BUN Creatinine Estimated GFR/1.73 m2 Glucose Calcium Ferritin Total Bilirubin AST ALT Alkaline Phosphatase Lactate Dehydrogenase Troponin I C-Reactive Protein Total Protein Albumin Procalcitonin Last Vital Signs Temp 36.9 C 04/20/20 23:50 Pulse 72 04/21/20 01:07 Resp 18 04/21/20 01:15 BP 95/49 L 04/21/20 01:07 Pulse Ox 95 04/21/20 01:15 COVID-19 Screening Have you, or household traveled for leisure in last 14 days?: Yes Had IN PERSON contact w/suspected or confirmed C-19 person: Yes
[2020-04-21] MEDS: Normal Saline 250 ML IV (03:22)
[2020-04-21] MEDS: Potassium Chloride 20 MEQ TABCR PO (04:02)
[2020-04-21 07:19] LABS: HCT 37.9 % (36.0-46.0); HGB 13.2 g/dL (11.2-15.7); MCHC 34.8 % (32.0-36.0); MPV 9.9 fL (8.0-11.0); Platelet Count 210 10^3/uL (130-400); RBC 4.26 10^6/uL (3.93-5.22); RDW 12.2 % (11.7-14.6); RDW-SD 39.8 fL
[2020-04-21 07:32] LABS: Anion Gap 11.1 mmol/L (3-11); BUN 35 mg/dL (7-18); CO2 27.9 mmol/L (21.0-32.0); CREATININE 1.54 mg/dL (0.55-1.02); Chloride 99 mmol/L (98-107); Estimated GFR 32.93 (mL/min/1.73m2); Glucose 147 mg/dL (74-106); Potassium 3.6 mmol/L (3.5-5.1); Sodium 138 mmol/L (136-145)
--- NOTE | 2020-04-21 08:17 | W.PM.PROGNOT ---
Date of Service Date of service: 04/21/20 Time of Service: 13:20 Subjective Subjective Interval history since last seen: Due to patient's COVID-19 positivity, her visit was done via phone while she was visualized through the glass door of the ICU. The patient states that she is feeling better. Her breathing is better. Her taste, but not her smell, may be coming back, she states. She denies headache, dizziness, chest pain, nausea, diarrhea. She is now on room air. Afebrile. Per nursing, lungs were clear. Has had dry cough. Hypotensive this am to the 90's, but SBP is now in 110s. Low UOP noted by nursing. The plan is to recheck labs in am. If LFTs/GFR ok, would continue on remdesivir. Continue decadron. I have added vitamin D3 4,000 iu daily, vitamin C 1000 mg daily, zinc, melatonin, pepcid. Because of low UOP and BP, we will finish the 1 L of IVF. Discussed DVT ppx with pharmacy - rx'ed intermediate dose lovenox (60 mg SC daily). Potential d/c home tomorrow. Objective Last Vital Signs Temp 36 C L 04/21/20 04:06 Pulse 66 04/21/20 05:01 Resp 20 04/21/20 05:54 BP 86/53 L 04/21/20 05:01 Pulse Ox 92 04/21/20 05:54 Laboratory Results - last 24 hr 04/21/20 04/21/20 04/21/20 00:00 00:00 00:00 WBC 6.75 RBC 4.46 Hgb 13.9 Hct 39.7 MCV 89.0 MCH 31.2 MCHC 35.0 RDW 12.0 Plt Count 224 MPV 9.9 Immature Gran % 0.6 Neutrophils % 76.1 Lymphocytes % 15.0 Monocytes % 8.1 Eosinophils % 0.1 Basophils % 0.1 Nucleated RBC % 0 Absolute Neutrophils 5.13 Absolute Lymphocytes 1.01 L Absolute Monocytes 0.55 Absolute Eosinophils 0.01 Absolute Basophils 0.01 D-Dimer VBG Lactate 0.8 Sodium 135 L Potassium 3.3 L Chloride 99 Carbon Dioxide 25.4 Anion Gap 10.6 BUN 34 H Creatinine 1.42 H Estimated GFR/1.73 m2 36.16 Glucose 98 Calcium 8.1 L Ferritin 529 H Total Bilirubin 0.6 AST 59 H ALT 60 H Alkaline Phosphatase 103 Lactate Dehydrogenase 278 H Troponin I < 0.05 C-Reactive Protein 3.56 H Total Protein 6.6 Albumin 3.0 L Procalcitonin 0.1 04/21/20 04/21/20 04/21/20 00:00 06:43 06:43 WBC 5.30 RBC 4.26 Hgb 13.2 Hct 37.9 MCV 89.0 MCH 31.0 MCHC 34.8 RDW 12.2 Plt Count 210 MPV 9.9 Immature Gran % Neutrophils % Lymphocytes % Monocytes % Eosinophils % Basophils % Nucleated RBC % Absolute Neutrophils Absolute Lymphocytes Absolute Monocytes Absolute Eosinophils Absolute Basophils D-Dimer 873 H VBG Lactate Sodium 138 Potassium 3.6 Chloride 99 Carbon Dioxide 27.9 Anion Gap 11.1 H BUN 35 H Creatinine 1.54 H Estimated GFR/1.73 m2 32.93 Glucose 147 H Calcium 8.0 L Ferritin Total Bilirubin AST ALT Alkaline Phosphatase Lactate Dehydrogenase Troponin I C-Reactive Protein Total Protein Albumin Procalcitonin
[2020-04-21] MEDS: Cholecalciferol (Vitamin D3) 1,000 UNIT TAB 4000 UNITS PO (08:32)
[2020-04-21] MEDS: Dexamethasone 4 MG TAB 6 MG PO (08:32)
[2020-04-21] MEDS: Aspirin E.C. 81 MG TABEC PO (08:32)
[2020-04-21] MEDS: Normal Saline Flush 10 ML SYR IVP (08:33)
[2020-04-21] MEDS: Ascorbic Acid 500 MG TAB PO ×2 (08:33→20:00)
[2020-04-21] MEDS: Normal Saline 1,000 ML 75 ML IV (08:33)
[2020-04-21] MEDS: Zinc Sulfate 220 MG TAB PO (08:39)
[2020-04-21] MEDS: Famotidine 20 MG TAB PO (08:40)
[2020-04-21 08:41] LABS: Creatine Kinase 67 U/L (26-192)
--- NOTE | 2020-04-21 11:33 | INITIAL_ITS ---
- If Service Date Differs Date of service: 04/21/20 Time of Service: 11:33 Care Management Initial Assess REASON FOR HOSPITALIZATION:: COVID with increase oxygen need PAST MEDICAL HISTORY/PAST SURGICAL HISTORY:: HTN, hearing loss, surgical hx of appendectomy PREVIOUS FUNCTIONAL STATUS/SOCIAL/FAMILY SUPPORTS:: Preeti is a 75 year old patient that lives with her spouse in [place], [place]. CURRENT FUNCTIONAL STATUS:: Preeti is currently on precautions for COVID. CM did review plan with primary nurse. Pt reviewed at discharge rounds and planning, CM will continue to monitor for needs and discharge planning. ADVANCE DIRECTIVES:: None on file CM will offer the forms Has patient been provided with info about the portal/API?: No Did the patient sign up for the portal?: No CODE STATUS:: Full Code INSURANCE COVERAGE / FINANCIAL ISSUES:: Medicare, [employer] life CURRENT HOME/COMMUNITY SERVICES/EQUIPMENT:: None at this time PRIMARY CARE PHYSICIAN:: Kathy Hoang POTENTIAL DISCHARGE NEEDS:: Preeti, will need primary care follow up scheduled prior to discharge. PATIENT/FAMILY EDUCATION NEEDS:: Discharge education, limitations and follow up plan of care including ask me three. ANTICIPATED BARRIERS TO DISCHARGE:: None identified TRANSPORTATION:: Via private car with family PLAN:: Preeti is receving IV fluids, close monitoring for labs and vital signs. She will be discharged home when medically ready. CM to continue to assess for ongoing discharge needs and coordinate disposition.
[2020-04-21] MEDS: Enoxaparin 60 MG/0.6 ML SYR SC (14:58)
--- NOTE | 2020-04-21 15:07 | PHA.REVIEW ---
Pharmacy Admission Review - Admission Clinical Review (Last Reviewed 04/21/20 @ 01:35 by Ritesh Padron MD) COVID-19 virus infection (Acute) Hypoxemia (Acute) No Known Allergies Allergy (Verified 04/21/20 00:02) Height 5 ft 4 in Weight 67.59 kg - Renal Dosing Renal Dosing: BUN 35 mg/dL (7-18) H 04/21/20 06:43 Creatinine 1.54 mg/dL (0.55-1.02) H 04/21/20 06:43 Medications needing adjustments: Intervened List of meds needing interventions: Initial dose of Remdesivir given in the ED, holding off today until CrCl improves (criteria for remdesivir use is >30ml/min -- drug dosing generally uses crcl vs gfr), ranitidine dose adjusted - Anticoagulation Anticoagulation: Hgb 13.2 g/dL (11.2-15.7) 04/21/20 06:43 Hct 37.9 % (36.0-46.0) 04/21/20 06:43 Plt Count 210 10^3/uL (130-400) 04/21/20 06:43 Creatinine 1.54 mg/dL (0.55-1.02) H 04/21/20 06:43 DVT Prohphylaxis: Reviewed Medications: Enoxaparin (Intermediate dose ordered per expert opinion/protocols in COVID-19 patients (also rec'd: 0.5mg/kg BID)) Therapeutic Anticoagulation: N/A Medications: Enoxaparin - Opiate Usage Evaluate Pain Scale/Pains Meds: Reviewed - Relevant Labs Sodium 138 mmol/L (136-145) 04/21/20 06:43 Potassium 3.6 mmol/L (3.5-5.1) 04/21/20 06:43 Chloride 99 mmol/L (98-107) 04/21/20 06:43 C-Reactive Protein 3.56 mg/dL (0.0-0.3) H 04/21/20 00:00 - DM Control DM Control: Glucose 147 mg/dL (74-106) H 04/21/20 06:43 - Heart Failure/MN Heart Failure/MN: Troponin I < 0.05 ng/mL (<0.06) 04/21/20 00:00 - BP Control BP Control: Blood Pressure [Left Arm] 99/49 Blood Pressure 98/48 Blood Pressure 104/65 Blood Pressure 116/44 Blood Pressure 100/61 Blood Pressure 85/64 Blood Pressure 92/49 Blood Pressure 97/46 Blood Pressure 89/49 Blood Pressure 86/53 Blood Pressure 95/52 Blood Pressure 99/49 If elevated: Reviewed - Qtc Review If Elevated: Reviewed (QTc 427) - IV to PO Switch IV Medications: Reviewed - Home Meds Home Med List reviewed: Reviewed Relevent Home Meds Not ordered & why?: chlorthalidone, losartan - very soft BP - Current meds Current Medication Order Review: Reviewed (anticipate continuation of remdesivir if kidney fxn improves, consider retiming enoxaparin along with AM or PM meds) - Comments Comments/Follow Ups: Monitor vitals, D-dimer (last lab: 873), BMP
[2020-04-22] VITALS (19 sets, daily range): BP systolic 99–122; BP diastolic 54–64; PULSE 57–81; RESP 14–22; TEMP 36–36.6; O2SAT 86–98
[2020-04-22 07:28] LABS: Abs Immature Grans 0.11 10^3/uL (0.0-0.06); Absolute Basophil Count 0.01 10^3/uL (0.0-0.2); Absolute Monocyte Count 0.78 10^3/uL (0.1-0.8); Absolute Neutrophil Count 7.33 10^3/uL (1.2-6.7); Basophils % 0.1; HCT 38.3 % (36.0-46.0); HGB 13.3 g/dL (11.2-15.7); Immature Grans % 1.2; Lymphocytes % 12.7; MCHC 34.7 % (32.0-36.0); MCV 89.3 fL (80-95); MPV 9.8 fL (8.0-11.0); Monocytes % 8.3; Neutrophils % 77.7; Nucleated RBC 0 %; Platelet Count 267 10^3/uL (130-400); RBC 4.29 10^6/uL (3.93-5.22); RDW 12.2 % (11.7-14.6); RDW-SD 40.2 fL; WBC 9.43 10^3/uL (4.4-10.8)
[2020-04-22 07:55] LABS: ALT 60 U/L (14-59); AST 55 U/L (15-37); Albumin 2.7 g/dL (3.4-5.0); Alkaline Phosphatase 87 U/L (46-116); Anion Gap 5.7 mmol/L (3-11); BUN 42 mg/dL (7-18); Bilirubin, Direct 0.11 mg/dL (0.00-0.20); Bilirubin, Total 0.4 mg/dL (0.2-1.0); C-Reactive Protein 2.47 mg/dL (0.0-0.3); CO2 25.3 mmol/L (21.0-32.0); CREATININE 1.36 mg/dL (0.55-1.02); Calcium 8.1 mg/dL (8.5-10.1); Chloride 104 mmol/L (98-107); Estimated GFR 38.01 (mL/min/1.73m2); Glucose 113 mg/dL (74-106); Magnesium 1.9 mg/dL (1.8-2.4); Potassium 3.6 mmol/L (3.5-5.1); Sodium 135 mmol/L (136-145); Total Protein 5.9 g/dL (6.4-8.2)
[2020-04-22 07:56] LABS: Troponin I < 0.05 ng/mL (<0.06)
[2020-04-22 08:09] LABS: ESR 35 mm/hr (0-30)
[2020-04-22 08:11] LABS: D-Dimer 572 ng/mlFEU (<500)
[2020-04-22] MEDS: Ascorbic Acid 500 MG TAB PO ×2 (08:35→21:11)
[2020-04-22] MEDS: Dexamethasone 4 MG TAB 6 MG PO (08:35)
[2020-04-22] MEDS: Zinc Sulfate 220 MG TAB PO (08:35)
[2020-04-22] MEDS: Aspirin E.C. 81 MG TABEC PO (08:35)
[2020-04-22] MEDS: Cholecalciferol (Vitamin D3) 1,000 UNIT TAB 4000 UNITS PO (08:35)
[2020-04-22] MEDS: Famotidine 20 MG TAB PO (08:35)
[2020-04-22] MEDS: Normal Saline Flush 10 ML SYR IVP (08:37)
[2020-04-22 09:48] LABS: Ferritin 583 ng/mL (8-252)
--- NOTE | 2020-04-22 13:10 | W.NUTRFU ---
Date of service: 04/22/20 Time of Service: 13:10 Nutritional Follow up NOTE: 75 year old female admitted with respiratory infection, Covid +. Following regular meal plan with excellent intake. Not at nutritional risk at this time. Will continue to follow. Time Spent in Nutritional Counseling and Treatment: 0
[2020-04-22] MEDS: Enoxaparin 60 MG/0.6 ML SYR SC (13:45)
--- NOTE | 2020-04-22 16:42 | PDOC.CMPRO ---
- If Service Date Differs Date of service: 04/22/20 Time of Service: 16:42 Care Management Progress Note S/O: CM reviewed clinical chart, and at interdisciplinary rounds. Anticipate Domenico will not need any services at time of discharge. She continues to require oxygen interminably. A: Preeti is a 75 year old patient admitted with COVID symptoms and started in the ICU. She is now on the medical surgical floor and remains under COVID precautions. P:Preeti is receiving IV steroids, antiviral for treatment of COVID, she remains under close monitoring for labs and vital signs. She will be discharged home when medically ready. CM to continue to assess for ongoing discharge needs and coordinate disposition.
--- NOTE | 2020-04-22 17:58 | W.PM.PROGNOT ---
Date of Service Date of service: 04/22/20 Time of Service: 17:58 Assessment and Plan Assessment and plan (1) COVID-19 virus infection: Status: Acute Assessment and plan: Continue decadron due to intermittent oxygen requirement, as well as remdesivir, carefully monitoring renal function. Continue vit D3, Vit C, zinc. Encourage IS/ambulation/proning within the room. Monitor continuous pulse ox tonight. (2) Hypoxemia: Status: Acute Assessment and plan: As above Also, will order ambulatory pulse ox for tomorrow. (3) Acute kidney injury superimposed on chronic kidney disease: Status: Acute Assessment and plan: The patient was taking her outpatient chlorthalidone and losartan when already hypotensive and in [facility] and without our knowledge. These have now been removed from her room. She is s/p 1 L of IVF yesterday. Cr is better today. No plans for further IVF at this time. (4) Hypotension: Status: Acute Assessment and plan: Probably related to dehydration + patient's own inappropriate use of antihypertensives. She is asymptomatic. As above (5) DVT prophylaxis: Status: Acute Assessment and plan: Intermediate dose lovenox (60 mg SC daily) (6) Discharge planning issues: Status: Acute Assessment and plan: Full code Possible discharge home tomorrow, depending on oxygen requirement. Subjective Subjective Interval history since last seen: Ms Draper states that she is feeling a little bit better today. She was completely unaware of requiring up to 3L of O2 last night - she was not short of breath. She denies dizziness, chest pain, nausea, diarrhea. She feels her senses of taste and smell are coming back somewhat. We talked about her needing to ambulate in the room, prone, and participate with IS. The patient apparently was still taking her own chlorthalidone and losartan in the hospital, even though they were not prescribed to her here, without our knowledge, at least through yesterday. Exam Narrative Exam Narrative: General: Pleasant elderly female, nontoxic appearing, no dyspnea/tachypnea/cyanosis, able to complete full sentences HEENT: EOMI, MMM Heart: RRR, no m/r/g Lungs: Very diminished breath sounds B Abdomen: soft, nontender, nondistended Extremities: no e/c/c BLE's Objective Last Vital Signs Temp 36.4 C L 04/22/20 15:16 Pulse 64 04/22/20 15:16 Resp 14 04/22/20 15:16 BP 99/54 L 04/22/20 15:16 Pulse Ox 93 04/22/20 15:16 Laboratory Results - last 24 hr 04/22/20 04/22/20 04/22/20 07:05 07:05 07:05 WBC 9.43 D RBC 4.29 Hgb 13.3 Hct 38.3 MCV 89.3 MCH 31.0 MCHC 34.7 RDW 12.2 Plt Count 267 MPV 9.8 Immature Gran % 1.2 Neutrophils % 77.7 Lymphocytes % 12.7 Monocytes % 8.3 Eosinophils % 0.0 Basophils % 0.1 Nucleated RBC % 0 Absolute Neutrophils 7.33 H Absolute Lymphocytes 1.20 Absolute Monocytes 0.78 Absolute Eosinophils 0.00 Absolute Basophils 0.01 ESR 35 H D-Dimer 572 H Sodium 135 L Potassium 3.6 Chloride 104 Carbon Dioxide 25.3 Anion Gap 5.7 BUN 42 H Creatinine 1.36 H Estimated GFR/1.73 m2 38.01 Glucose 113 H Calcium 8.1 L Magnesium 1.9 Ferritin 583 H Total Bilirubin 0.4 Conjugated Bilirubin 0.11 AST 55 H ALT 60 H Alkaline Phosphatase 87 Troponin I < 0.05 C-Reactive Protein 2.47 H Total Protein 5.9 L Albumin 2.7 L
[2020-04-23] VITALS (9 sets, daily range): BP systolic 98–128; BP diastolic 59–73; PULSE 54–74; RESP 14–18; TEMP 35.5–36.9; O2SAT 94–96
[2020-04-23 07:28] LABS: Abs Immature Grans 0.16 10^3/uL (0.0-0.06); Absolute Basophil Count 0.01 10^3/uL (0.0-0.2); Absolute Lymphocyte Count 1.45 10^3/uL (1.2-3.4); Absolute Monocyte Count 0.71 10^3/uL (0.1-0.8); Basophils % 0.1; HCT 36.4 % (36.0-46.0); HGB 12.5 g/dL (11.2-15.7); Immature Grans % 1.3; Lymphocytes % 11.9; MCH 31.1 pg (27.0-33.0); MCHC 34.3 % (32.0-36.0); MCV 90.5 fL (80-95); MPV 9.9 fL (8.0-11.0); Monocytes % 5.8; Neutrophils % 80.9; Nucleated RBC 0 %; Platelet Count 285 10^3/uL (130-400); RBC 4.02 10^6/uL (3.93-5.22); RDW 12.3 % (11.7-14.6); WBC 12.16 10^3/uL (4.4-10.8)
[2020-04-23 07:32] LABS: Absolute Neutrophil Count 9.84 10^3/uL (1.2-6.7)
[2020-04-23 07:53] LABS: ALT 71 U/L (14-59); AST 57 U/L (15-37); Albumin 2.7 g/dL (3.4-5.0); Alkaline Phosphatase 82 U/L (46-116); Anion Gap 7.6 mmol/L (3-11); BUN 44 mg/dL (7-18); Bilirubin, Direct 0.13 mg/dL (0.00-0.20); Bilirubin, Total 0.3 mg/dL (0.2-1.0); C-Reactive Protein 1.39 mg/dL (0.0-0.3); CO2 24.4 mmol/L (21.0-32.0); CREATININE 1.32 mg/dL (0.55-1.02); Calcium 8.2 mg/dL (8.5-10.1); Chloride 105 mmol/L (98-107); Estimated GFR 39.34 (mL/min/1.73m2); Glucose 94 mg/dL (74-106); LDH 246 U/L (81-234); Magnesium 1.8 mg/dL (1.8-2.4); Potassium 3.7 mmol/L (3.5-5.1); Sodium 137 mmol/L (136-145); Total Protein 5.8 g/dL (6.4-8.2)
[2020-04-23 08:06] LABS: D-Dimer 396 ng/mlFEU (<500)
[2020-04-23] MEDS: Aspirin E.C. 81 MG TABEC PO (08:24)
[2020-04-23] MEDS: Zinc Sulfate 220 MG TAB PO (08:24)
[2020-04-23] MEDS: Dexamethasone 4 MG TAB 6 MG PO (08:24)
[2020-04-23] MEDS: Famotidine 20 MG TAB PO (08:24)
[2020-04-23] MEDS: Ascorbic Acid 500 MG TAB PO ×2 (08:24→21:34)
[2020-04-23] MEDS: Cholecalciferol (Vitamin D3) 1,000 UNIT TAB 4000 UNITS PO (08:24)
[2020-04-23] MEDS: Normal Saline Flush 10 ML SYR IVP (08:28)
--- NOTE | 2020-04-23 10:43 | CMPROGNOTE_ITS ---
- If Service Date Differs Date of service: 04/23/20 Time of Service: 10:43 Care Management Progress Note S/O: Preeti remains on isolation for Covid-19 infection, so CM was unable to meet with her in person. Per provider, last night she had continuous pulse- oximetry monitoring and did not alarm at all. Her hypoxia has resolved and she is ambulating in the room. She is on day four of Remdesevir treatment and appears to be tolerating it well. A: Preeti is a 75 year old patient admitted with COVID symptoms and started in the ICU. She is now on the medical surgical floor and remains under COVID precautions. Last night she had continuous pulse-oximetry monitoring and did not alarm at all. Her hypoxia has resolved and she is ambulating in the room P:Preeti is receiving IV steroids, antiviral for treatment of COVID, she remains under close monitoring for labs and vital signs. She will be discharged home when medically ready. CM to continue to assess for ongoing discharge needs and coordinate disposition.
[2020-04-23 11:02] LABS: Ferritin 639 ng/mL (8-252)
[2020-04-23] MEDS: Enoxaparin 60 MG/0.6 ML SYR SC (14:19)
--- NOTE | 2020-04-23 15:25 | W.PM.PROGNOT ---
Date of Service Date of service: 04/23/20 Time of Service: 15:25 Assessment and Plan Assessment and plan (1) COVID-19 virus infection: Status: Acute Assessment and plan: Continue decadron due to intermittent oxygen requirement, as well as remdesivir, carefully monitoring renal function. Continue vit D3, Vit C, zinc. Encourage IS/ambulation/proning within the room. Monitor continuous pulse ox tonight. (2) Hypoxemia: Status: Resolved Assessment and plan: Hypoxemia appears to have resolved she is currently on room air not dyspneic with ADL or walking around her room. I have changed her continuous oxygen order to as needed and pulse oximetry will be changed from continuous to be checked with her routine vitals (3) Acute kidney injury superimposed on chronic kidney disease: Status: Acute Assessment and plan: Acute kidney injury appears to be improving. Creatinine is down to 1.32 and BUN is stable at 44. No need for further IV fluids as the patient is currently taking adequate amounts of oral fluids. Patient remains on off losartan and chlorthalidone. Blood pressures running on the low end of normal to slightly hypotensive but she is asymptomatic. Blood pressure at noon time was 98/68 and morning blood pressure was 102/59. I will keep her off her losartan for the time being. (4) Hypotension: Status: Acute Assessment and plan: Probably related to dehydration + patient's own inappropriate use of antihypertensives. She is asymptomatic. As above (5) DVT prophylaxis: Status: Acute Assessment and plan: Intermediate dose lovenox (60 mg SC daily) (6) Discharge planning issues: Status: Acute Assessment and plan: Full code Like the patient to finish out her course of remdesivir prior to discharge.. Subjective Subjective Interval history since last seen: Patient denies any dyspnea or chest pain nor any leg swelling or leg pain. She knows that with proning she started to cough up a little bit of mucus that is yellow-tinged. No hemoptysis. She remains afebrile. WBCs mildly elevated at 12,000 however she is on Decadron 6 mg daily. She is now on day 3 of Remdesivir. She had 200 mg loading dose on the first day today was the second of a 4-day course of 100 mg. She has been ambulating around the room and trying to be out of bed is much as possible. Exam Narrative Exam Narrative: Older female who is alert and oriented person place time circumstance in no respiratory distress able to talk in complete paragraphs without dyspnea. Lungs were difficult to auscultate as I was wearing a PAPR at the time. She seemed to have some bibasilar rales no rhonchi or wheezing. Heart regular rate and rhythm with soft systolic murmur and no gallop Abdomen soft and nontender Lower extremities without calf tenderness or swelling and no cyanosis Objective Last Vital Signs Temp 36.9 C 04/23/20 11:09 Pulse 64 04/23/20 11:09 Resp 18 04/23/20 11:09 BP 98/68 L 04/23/20 11:09 Pulse Ox 96 04/23/20 11:09 Laboratory Results - last 24 hr 04/23/20 04/23/20 04/23/20 07:08 07:08 07:08 WBC 12.16 H RBC 4.02 Hgb 12.5 Hct 36.4 MCV 90.5 MCH 31.1 MCHC 34.3 RDW 12.3 Plt Count 285 MPV 9.9 Immature Gran % 1.3 Neutrophils % 80.9 Lymphocytes % 11.9 Monocytes % 5.8 Eosinophils % 0.0 Basophils % 0.1 Nucleated RBC % 0 Absolute Neutrophils 9.84 H Absolute Lymphocytes 1.45 Absolute Monocytes 0.71 Absolute Eosinophils 0.00 Absolute Basophils 0.01 D-Dimer 396 Sodium 137 Potassium 3.7 Chloride 105 Carbon Dioxide 24.4 Anion Gap 7.6 BUN 44 H Creatinine 1.32 H Estimated GFR/1.73 m2 39.34 Glucose 94 Calcium 8.2 L Magnesium 1.8 Ferritin 639 H Total Bilirubin 0.3 Conjugated Bilirubin 0.13 AST 57 H ALT 71 H Alkaline Phosphatase 82 Lactate Dehydrogenase 246 H C-Reactive Protein 1.39 H Total Protein 5.8 L Albumin 2.7 L
[2020-04-24 03:24] VITALS: BP 103/57; PULSE 64; RESP 17; TEMP 36.8; O2SAT 95
[2020-04-24] MEDS: Aspirin E.C. 81 MG TABEC PO (08:39)
[2020-04-24] MEDS: Cholecalciferol (Vitamin D3) 1,000 UNIT TAB 4000 UNITS PO (08:39)
[2020-04-24] MEDS: Ascorbic Acid 500 MG TAB PO ×2 (08:39→22:03)
[2020-04-24 08:40] VITALS: BP 120/80; PULSE 85; RESP 20; TEMP 37.1; O2SAT 92
[2020-04-24] MEDS: Famotidine 20 MG TAB PO (08:40)
[2020-04-24] MEDS: Dexamethasone 4 MG TAB 6 MG PO (08:40)
[2020-04-24] MEDS: Zinc Sulfate 220 MG TAB PO (08:40)
--- NOTE | 2020-04-24 10:14 | PDOC.CMPRO ---
- If Service Date Differs Date of service: 04/24/20 Time of Service: 10:14 Care Management Progress Note S/O: Preeti remains on isolation for Covid-19 infection, so CM was unable to meet with her in person. She continues to improve and is oxygenating well on room air. She needs one more day of Remdesevir and will likely be ready for discharge, per provider. A: Preeti is a 75 year old patient admitted with COVID symptoms and started in the ICU. She is now on the medical surgical floor and remains under COVID precautions. Last night she had continuous pulse-oximetry monitoring and did not alarm at all. Her hypoxia has resolved and she is ambulating in the room P:Preeti is receiving IV steroids, antiviral for treatment of COVID, she remains under close monitoring for labs and vital signs. She will be discharged home when medically ready. CM to continue to assess for ongoing discharge needs and coordinate disposition.
[2020-04-24 11:48] VITALS: O2SAT 95
[2020-04-24 12:05] VITALS: BP 130/74; PULSE 76; RESP 20; TEMP 37.2; O2SAT 96
[2020-04-24] MEDS: Enoxaparin 60 MG/0.6 ML SYR SC (15:11)
[2020-04-24 15:12] VITALS: BP 138/68; PULSE 82; RESP 20; TEMP 36.5; O2SAT 96
--- NOTE | 2020-04-24 15:46 | W.PM.PROGNOT ---
Date of Service Date of service: 04/24/20 Time of Service: 15:46 Assessment and Plan Assessment and plan (1) COVID-19 virus infection: Status: Acute Assessment and plan: No need for further oxygen therapy as her O2 saturation has been 95 to 96% on room air. No need for overnight pulse oximetry. Continue remdesivir and Decadron. Today is day 4 out of 5 of her Remdesivir. She will complete her therapy tomorrow and be discharged home tomorrow afternoon. (2) Acute kidney injury superimposed on chronic kidney disease: Status: Acute Assessment and plan: Acute kidney injury appears to be improving. Patient is off IV fluids and drinking adequate orally. We will repeat her BMP in the morning. Blood pressure is doing better. She remains off losartan and chlorthalidone but will probably resume losartan at a reduced dose upon discharge. (3) Acute bronchitis: Status: Acute Qualifiers: Bronchitis organism: unspecified organism Qualified Code(s): J20.9 - Acute bronchitis, unspecified (4) DVT prophylaxis: Status: Acute Assessment and plan: Intermediate dose lovenox (60 mg SC daily) consider DOAC upon discharge (5) Discharge planning issues: Status: Acute Assessment and plan: Full code Like the patient to finish out her course of remdesivir prior to discharge.. Subjective Subjective Patient reports: no new complaints Interval history since last seen: Patient is coughing up a little bit of yellowish sputum but denies any shortness of breath or chest pain fever or rigors. Sense of taste and smell are coming back. Exam Narrative Exam Narrative: Exam deferred due to her positive Covid status and improving condition as well as my need to wear a PAPR which inhibited by exam Objective Last Vital Signs Temp 36.5 C 04/24/20 15:12 Pulse 82 04/24/20 15:12 Resp 20 04/24/20 15:12 BP 138/68 04/24/20 15:12 Pulse Ox 96 04/24/20 15:12
[2020-04-24] MEDS: Azithromycin 250 MG TAB 500 MG PO (16:55)
[2020-04-24] MEDS: Normal Saline Flush 10 ML SYR IVP (22:05)
[2020-04-24 22:19] VITALS: BP 126/73; PULSE 66; RESP 18; TEMP 36.6; O2SAT 97
[2020-04-25 03:01] VITALS: BP 108/59; PULSE 65; RESP 18; TEMP 36.6; O2SAT 93
[2020-04-25 07:10] LABS: Abs Immature Grans 0.36 10^3/uL (0.0-0.06); Absolute Lymphocyte Count 1.74 10^3/uL (1.2-3.4); Absolute Monocyte Count 0.94 10^3/uL (0.1-0.8); Basophils % 0.3; HCT 34.9 % (36.0-46.0); HGB 12.2 g/dL (11.2-15.7); Lymphocytes % 14.6; MCH 31.2 pg (27.0-33.0); MCV 89.3 fL (80-95); MPV 9.9 fL (8.0-11.0); Monocytes % 7.9; Neutrophils % 74.2; Nucleated RBC 0 %; Platelet Count 326 10^3/uL (130-400); RBC 3.91 10^6/uL (3.93-5.22); RDW 12.3 % (11.7-14.6); RDW-SD 40.4 fL; WBC 11.93 10^3/uL (4.4-10.8)
[2020-04-25 07:16] LABS: Absolute Basophil Count 0.04 10^3/uL (0.0-0.2); Absolute Neutrophil Count 8.85 10^3/uL (1.2-6.7)
[2020-04-25 07:19] LABS: Anion Gap 8.4 mmol/L (3-11); BUN 38 mg/dL (7-18); CO2 26.6 mmol/L (21.0-32.0); CREATININE 1.35 mg/dL (0.55-1.02); Calcium 8.3 mg/dL (8.5-10.1); Chloride 105 mmol/L (98-107); Estimated GFR 38.33 (mL/min/1.73m2); Glucose 93 mg/dL (74-106); Potassium 4.2 mmol/L (3.5-5.1); Sodium 140 mmol/L (136-145)
[2020-04-25] MEDS: Ascorbic Acid 500 MG TAB PO (08:35)
[2020-04-25] MEDS: Aspirin E.C. 81 MG TABEC PO (08:36)
[2020-04-25] MEDS: Cholecalciferol (Vitamin D3) 1,000 UNIT TAB 4000 UNITS PO (08:36)
[2020-04-25] MEDS: Azithromycin 250 MG TAB PO (08:36)
[2020-04-25] MEDS: Dexamethasone 4 MG TAB 6 MG PO (08:37)
[2020-04-25] MEDS: Famotidine 20 MG TAB PO (08:37)
[2020-04-25] MEDS: Zinc Sulfate 220 MG TAB PO (08:38)
[2020-04-25 08:40] VITALS: O2SAT 98
[2020-04-25 08:42] VITALS: BP 118/67; PULSE 74; RESP 20; TEMP 36.4; O2SAT 98
[2020-04-25 12:10] VITALS: BP 120/68; PULSE 70; RESP 18; TEMP 36.4; O2SAT 98
--- NOTE | 2020-04-25 13:14 | W.PM.DS.N ---
Date of service: 04/25/20 Time of Service: 13:14 DS: Diagnosis Discharge Diagnosis (1) COVID-19 virus infection: Status: Acute Asessment and Plan: Patient was treated with a 5-day course of remdesivir while hospitalized and started on Decadron 6 mg daily. She will finish 5 more days of Decadron for a total of 10 days. (2) Acute kidney injury superimposed on chronic kidney disease: Status: Acute (3) Acute bronchitis: Status: Acute Asessment and Plan: Patient was started on azithromycin while hospitalized and will be sent home on a 5-day course of azithromycin to 50 mg p.o. daily (4) DVT prophylaxis: Status: Acute Asessment and Plan: Patient was placed on enoxaparin 60 mg subcutaneously daily while hospitalized and per recommendation from hematology she will continue on 40 mg daily for 1 month post hospitalization. Discharge Plan Disposition Patient Disposition: HOME Condition: Improving Discharge Details Reason For Visit: COVID Admit Date/Time: 04/21/20 01:42 Admit Provider: Ritesh Padron Attending Provider: Ritesh Padron Primary Care Provider: Kathy Earl Hospital Course Hospital Course: 75-year-old female past medical history of hypertension who recently returned from [facility] and returned in [place] with a 1 week history of low-grade fever diarrhea and vomiting which subsequently developed into a cough and shortness of breath along w/ loss of sense of taste and smell. She was evaluated emergency room on April 20 underwent testing for SARS-CoV-2 at that time she has stable vital signs and normal oxygen saturation on room air and was discharged home with instructions to quarantine pending results of her SARS-CoV-2 test. She later returned to the emergency room that evening with increasing shortness of breath and was found to be hypoxemic and mildly hypotensive and her SARS-CoV2 test. Patient was given IV fluids supplemental oxygen and started on Decadron. She was subsequently started on Remdesivir. She was found to have acute on chronic kidney disease with elevated BUN of 34 creatinine 1.87 which improved with IV fluid hydration upon discharge her repeat BUN was down to 38 creatinine is down to 1.35. She subsequently developed some purulent sputum production but never had a fever. She was started on azithromycin for treatment of acute purulent bronchitis. Her chest x-ray is showed no acute pulmonary findings. Her hypoxemia resolved by the morning of April 22, 2020 and she was able to be taken off of supplemental oxygen. Her condition continued to improve and she finished out her course of remdesivir which included a loading dose of 200 mg on the first day and 100 mg intravenously daily for 4 more days. She was treated with Decadron 6 mg p.o. daily. She will be discharged on 5 more days of Decadron. She will continue 5 more days of azithromycin to her 50 mg p.o. daily. She was given an influenza vaccine on the day of discharge. She is advised to remain at home for the next 10 days and get subsequent follow-up SARS-CoV-2 PCR testing to ensure that she is cleared her infection. Patient's D-dimer on admission was slightly elevated at 699 but within the age-adjusted limits (for her age of 75 age-adjusted limit would be 740) however the D-dimer was repeated on April 21 April 22 April 23 and progressively declined to its final level of 396. Patient was treated prophylactically with enoxaparin and intermediate dose range of 60 mg subcutaneously daily. I discussed her case with hematology from [facility] regarding best recommendations for post discharge DVT prophylaxis in the setting of COVID-19. Systems Administrator indicated that there have been no studies so far weighing bleeding risk versus DVT and PE prevention. She thought it would be reasonable to treat the patient for a month on prophylactic enoxaparin at 30 to 40 mg subcutaneously daily. Home Meds and New Rx's Prescriptions: New dexamethasone [Decadron] 6 mg tablet 6 mg PO DAILY Qty: 5 RF: 0 azithromycin 250 mg tablet 250 mg PO DAILY 5 Days Qty: 5 RF: 0 enoxaparin 40 mg/0.4 mL syringe 40 mg subcut DAILY Qty: 12 RF: 0 No Action estradiol [Estrace] 0.01 % (0.1 mg/gram) cream 1 g VG .COMPLEX Qty: 42.5 RF: 4 losartan 100 MG tablet 100 mg PO DAILY RF: 0 aspirin [Aspir-81] 81 MG tablet,delayed release (DR/EC) 81 mg PO DAILY RF: 0 chlorthalidone 25 MG tablet 25 mg PO DAILY RF: 0 Discharge Instructions Instructions: COVID-19 (Coronavirus Disease 2019) (DC) Additional Instructions: remain at home for the next 10 days and then get repeat SARS-COV2 testing to ensure that you have cleared the infection. Activity:: Activity as Tolerated Equipment/Supplies:: No Equipment Needed Diet:: Normal Diet Discharge Orders Discharge Orders: Discharge Order (Routine); Ordered 04/25/20 Ordered By: Leonid Ramos DS: Summary Status at Discharge Functional status at discharge: independent ambulation Overall status at discharge: patient is progressing back to baseline Mental Status: mental status grossly normal Speech and Movement: speech and movement normal Mood: congruent mood Affect: normal affect Time Spent with Patient providing and/or coordinating discharge services: Greater than 30 minutes Specific discharge activities: Discussion with hematology advertising sales consultant, arranging prescriptions, discussing follow-up with the patient Exam Narrative Exam Narrative: Older thin female who is alert and oriented person place time circumstance in no respiratory discomfort. She is able to talk in complete sentences. lungs are clear to auscultation Heart regular rate and rhythm Extremities without peripheral cyanosis or edema Psych Mental Status: mental status grossly normal Speech and Movement: speech and movement normal Mood: congruent mood Affect: normal affect DS: Data Vitals/I&O Vitals and I&O: Vital Signs Temperature 36.4 C L 04/25/20 08:42 Temperature Source Tympanic 04/25/20 08:42 Pulse 74 04/25/20 08:42 Pulse Rhythm Regular 04/25/20 08:45 Pulse 69 04/21/20 15:44 Respiratory Rate 20 04/25/20 08:42 Respiratory Effort Non-Labored 04/25/20 08:45 Respiratory Depth Normal 04/25/20 08:45 Respiratory Pattern Normal 04/25/20 08:45 Blood Pressure 118/67 04/25/20 08:42 Blood Pressure Mean 60 04/21/20 14:01 Blood Pressure Position Left Lateral 04/21/20 04:06 Pulse Oximetry 98 04/25/20 08:42 Oxygen Delivery Method Room Air 04/25/20 08:42 Oxygen Flow Rate 0 04/25/20 08:42 Pain Level 0 04/25/20 08:42 Comment SAO2 STABLE ON ROOM AIR 04/22/20 08:44 Intake & Output 04/24/20 04/25/20 04/25/20 23:59 11:59 23:59 Intake Total 310 / 410 Balance 310 / 10 Intake: IV 10 / 110 Oral 300 / 300 Other: Urine Color Yellow Urine Appearance Clear Clear Urine Odor None Comment Pt using bathroom independently. Voiding Methods Toilet Data Completed and Pending Labs on day of discharge: Labs from last 24 hours 04/25/20 04/25/20 06:48 06:48 WBC 11.93 H RBC 3.91 L Hgb 12.2 Hct 34.9 L MCV 89.3 MCH 31.2 MCHC 35.0 RDW 12.3 Plt Count 326 MPV 9.9 Immature Gran % 3.0 Neutrophils % 74.2 Lymphocytes % 14.6 Monocytes % 7.9 Eosinophils % 0.0 Basophils % 0.3 Nucleated RBC % 0 Absolute Neutrophils 8.85 H Absolute Lymphocytes 1.74 Absolute Monocytes 0.94 H Absolute Eosinophils 0.00 Absolute Basophils 0.04 Sodium 140 Potassium 4.2 Chloride 105 Carbon Dioxide 26.6 Anion Gap 8.4 BUN 38 H Creatinine 1.35 H Estimated GFR/1.73 m2 38.33 Glucose 93 Calcium 8.3 L [facility] Medical History Hypertension 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
--- NOTE | 2020-04-25 13:34 | PDOC.CMDIS ---
- If Service Date Differs Date of service: 04/25/20 Time of Service: 13:35 LACE Index Scoring Tool - Questions: Length of Stay (in days): 4 - 6 Acuity (Admit via E.D.?): Yes E.D. Visits: 2 - Answers: Total Score: 9 Risk of Readmission: Low Risk Care Management Discharge Reason for Hospitalization: COVID with increase oxygen need Discharge Plan: Preeti states she is feeling better and is ready for discharge. She reports her spouse is picking her up today. She does not need oxygen at time of discharge. CM provided contact information for questions or concerns after discharge. Patient/Family Education Needs: Discharge education, limitations and follow up plan of care.
[2020-04-25] MEDS: Enoxaparin 60 MG/0.6 ML SYR SC (14:47)
== END 2020-04-25 15:05 | disposition home or self-care (01) | DRG 178 ==
LOC: ER 04-21 01:09 → ICU 04-21 02:31 → MS 04-22 09:43
PROVIDERS: Internal Medicine; Admitting Provider General Practice; Emergency Provider Emergency Medicine; PCP Family Medicine; Visit Provider General Practice
DX: U07.1 COVID-19 (principal); N17.9 Acute kidney failure, unspecified; J20.8 Acute bronchitis due to other specified organisms; R09.02 Hypoxemia; I95.9 Hypotension, unspecified; N18.9 Chronic kidney disease, unspecified; I12.9 Hypertensive chronic kidney disease with stage 1 through stage 4 chronic kidney disease, or unspecified chronic kidney disease; E86.0 Dehydration
CPT/HCPCS: 36415; 80048; 80053; 80076; 82550; 84145; 85027; 85652; 90662; 93005; 96360; 96365; 96372; 96375; 99222; 99232; 99239; 99285; NC; U0003; 71045; 81003; 81015; 82728; 83605; 83615; 83735; 84484; 85025; 85379; 86140; 93010; J1100; J1644; J1650; J3490; J8540

== ENCOUNTER 2020-12-23 21:19 | Emergency (ER) | payer MEDICARE, OTHER, SELFPAY ==
[2020-12-23 21:24] VITALS: BP 145/61; PULSE 78; RESP 18; TEMP 37; O2SAT 100
--- NOTE | 2020-12-23 21:41 | ED.GENADUL_ITS ---
Discharge Plan Disposition Patient Disposition: HOME Condition: Stable Discharge Details Clinical Impression: Abrasion of cornea, left Primary Care Provider: Kathy Earl ED Provider: Shweta Scott Home Meds and New Rx's Prescriptions: No Action estradiol [Estrace] 0.01 % (0.1 mg/gram) cream 1 g VG .COMPLEX Qty: 42.5 RF: 4 losartan 100 MG tablet 100 mg PO DAILY RF: 0 aspirin [Aspir-81] 81 MG tablet,delayed release (DR/EC) 81 mg PO DAILY RF: 0 chlorthalidone 25 MG tablet 25 mg PO DAILY RF: 0 dexamethasone [Decadron] 6 mg tablet 6 mg PO DAILY Qty: 5 RF: 0 enoxaparin 40 mg/0.4 mL syringe 40 mg subcut DAILY Qty: 12 RF: 0 Discharge Instructions Instructions: Corneal Abrasion (ED) Additional Instructions: Use erythromycin ointment 3 times daily x5 days. Use dark glasses as needed for light sensitivity. Try not to rub your eye as much as possible. Follow[facility]up with [facility] call on Saturday to schedule an appointment as soon as possible for further evaluation. Follow up with primary care provider in 3-5 days if needed. Return to ED sooner if any worsening pain not relieved by Tylenol ibuprofen, vomiting, confusion, loss of vision, or signs of head injury or concerns. Increase oral fluids. [facility] Address: [address] [place] [id number] Hours: Opens 8AM Mon Referrals: Kathy Earl [Primary Care Provider] - Medical Decision Making 75-year-old female presents to the ER chief complaint of left eye pain and irritation. Patient states she was out working in the [employer] this morning and was hit in the left eye with a branch. She reports intermittent sharp pains to the left eye she does wear corrective lenses. On initial exam left eye is tearful conjunctive is injected pupils are equal bilaterally and PERRLA. She did not take any Tylenol or ibuprofen prior to arrival. She does have a past medical history of COVID-19, acute kidney injury, bronchitis, hypertension she does take a daily aspirin. Denies any other associated symptoms or trauma. Fluorescein eye exam Terry lamp exam performed as noted in physical exam above. Small corneal abrasion noted. Patient was given erythromycin eye ointment and instructed to follow-up with [facility] for further evaluation. Patient verbalized underst anding. HPI General Mode of arrival: ambulatory . Date/Time Provider Initiated Documentation: 12/23/20 21:35 . Limitations to Documentation: no limitations . Information obtained by: patient and RN notes reviewed . HPI Narrative: 75-year-old female presents to the ER chief complaint of left eye pain and irritation. Patient states she was out working in the [employer] this morning and was hit in the left eye with a branch. She reports intermittent sharp pains to the left eye she does wear corrective lenses. On initial exam left eye is tearful conjunctive is injected pupils are equal bilaterally and PERRLA. She did not take any Tylenol or ibuprofen prior to arrival. She does have a past medical history of COVID-19, acute kidney injury, bronchitis, hypertension she does take a daily aspirin. Denies any other associated symptoms or trauma. R elated Data Home Medications Medication Instructions Recorded Confirmed aspirin [Aspir-81] 81 mg PO DAILY 06/01/14 12/23/20 losartan 100 mg PO DAILY 06/01/14 12/23/20 chlorthalidone 25 mg PO DAILY 05/08/15 12/23/20 estradiol 1 g VG .COMPLEX #42.5 gm 11/14/18 12/23/20 dexamethasone [Decadron] 6 mg PO DAILY #5 tab 04/25/20 enoxaparin 40 mg SUBCUT DAILY #12 ml 04/25/20 Previous Rx's Medication Instructions Recorded estradiol 1 g VG .COMPLEX #42.5 gm 11/14/18 dexamethasone [Decadron] 6 mg PO DAILY #5 tab 04/25/20 enoxaparin 40 mg SUBCUT DAILY #12 ml 04/25/20 Allergies Allergy/AdvReac Type Severity Reaction Status Date / Time No Known Allergies Allergy Verified 12/23/20 21:30 General Stated Complaint: EyeProblem TREVON: 4 Review of Systems All systems reviewed & are unremarkable except as noted in HPI and below Eyes Eyes: Reports system reviewed and no additional complaints, except as documented, Reports blurry vision, Reports irritation and Reports eye pain [facility] Medical History Hypertension 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, unilateral, left ear, 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 side (11/22/16) Vaginal atrophy Surgical History S/P appendectomy Family History Sister Breast cancer Social History Smoking/Tobacco Use Status: Never Smoking risk assessment performed?: Yes Alcohol Intake: current Alcohol Intake frequency: a few times a week Drug use: Never Substance use type: does not use 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 Corneal Abrasion, Uptake of dye 2. Injected, mild subconjuctival hemorrhage Course Vital Signs Vital signs: Vital Signs Temperature 37 C 12/23/20 21:24 Pulse 78 12/23/20 21:24 Respiratory Rate 18 12/23/20 21:24 Blood Pressure 145/61 H 12/23/20 21:24 Pulse Oximetry 100 12/23/20 21:24 Temperature 37 C 12/23/20 21:24 Temperature Source Skin 12/23/20 21:24 Pulse 78 12/23/20 21:24 Respiratory Rate 18 12/23/20 21:24 Respiratory Effort 12/23/20 21:31 Blood Pressure 145/61 H 12/23/20 21:24 Blood Pressure Position Sitting 12/23/20 21:24 Pulse Oximetry 100 12/23/20 21:24 Oxygen Delivery Method Room Air 12/23/20 21:24 Oxygen Flow Rate 0 12/23/20 21:24 Pain Level 4 12/23/20 21:24 Comment denies otc relief captain room service 12/23/20 21:24
[2020-12-23] MEDS: Balanced Salt Solution 15 ML BTL OP (21:42)
[2020-12-23] MEDS: Tetracaine 0.5% 4 ML BTL OP (21:42)
[2020-12-23] MEDS: Fluorescein STRIPS 100/BOX 1 MG OP (21:43)
[2020-12-23] MEDS: Erythromycin Ophth Oint 3.5 GM TUBE OS (22:15)
== END 2020-12-23 22:20 | disposition home or self-care (01) ==
PROVIDERS: Emergency Provider Registered Nurse Emergency; PCP Family Medicine
DX: S05.20XA Ocular laceration and rupture with prolapse or loss of intraocular tissue, unspecified eye, initial encounter (principal); W22.8XXA Striking against or struck by other objects, initial encounter
CPT/HCPCS: 99283

== ENCOUNTER 2021-04-22 14:23 | Outpatient (REF) | payer MEDICARE, OTHER, SELFPAY ==
--- NOTE | 2021-04-22 14:15 | PAPNONF_PTH ---
PATIENT: Preeti Draper LOC: [facility]#:[id number] AGE/SX: 76/F ROOM: RE04/22/[address]: Kiki Kamara : 1945 BED: DIS: 04/22/2021 SPEC #: [id number] RECD: 04/24/21 13:08 STATUS: REX REQ #: [id number] AWA: 04/22/21 14:[address]: Kiki Kamara DEPT: [facility] Cytology RECD BY: Paty Medeiros ENTERED: 04/24/21 13:09 SP TYPE: PAPNONF WALDEMARHR DR: Kathy Earl Tissues: 1 - BODY FLUID CYTO(SPUTUM/URINE)[facility] Procedures: BODY FLUID CYTO(URINE/SPUTUM) Comments: [id number] (TOTAL VOLUME = 35 ml) (35 ml URINE & 35 ml CYTOLYT ADDED)
== END 2021-04-22 14:24 | disposition home or self-care (01) ==
LOC: NCHCN 14:23
PROVIDERS: PCP Family Medicine; Visit Provider Physician Assistant Medical
DX: N39.0 Urinary tract infection, site not specified (principal)
CPT/HCPCS: 87086; 88104

== ENCOUNTER 2021-10-12 00:15 | Outpatient (CLI) | payer MEDICARE, OTHER, SELFPAY ==
--- NOTE | 2021-10-12 | DI.MAMMO_ITS ---
Exam(s) MAMMO SCREENING EXAM: MAMMO SCREENING CLINICAL HISTORY: SCREENING TECHNIQUE: Mammograms were interpreted according to the usual protocol including computer analysis w [employer]raj[employer] CAD system, tomosynthesis and C-view imaging. COMPARISON: FINDINGS: The breasts are heterogeneously dense. No dominant mass or clumped microcalcification is identified in either breast. The current examination is compared with previous examinations including February 2018 and there has been no gross interval change in appearance in comparison with the prior studies. IMPRESSION: No specific evidence of malignancy at this time. Routine screening examinations are suggested at yea rly intervals due to the family history of breast carcinoma. BI-RADS Category 1 - Negative Breast Density - Category C - Heterogeneously dense
--- NOTE | 2021-10-12 15:30 | DI.DEXA_ITS ---
Exam(s) XR DEXA BONE DENSITY W/WO SINAN EXAM: XR DEXA BONE DENSITY W/WO SINAN CLINICAL HISTORY: OSTEOPENIA, M85.88 TECHNIQUE: COMPARISON: No exams were available for comparison FINDINGS: DEXA scan was performed according to the usual protocol. Please see the accompanying data sheets. Left hip scanning shows T-score -0.9 with left femoral neck T-score -2.0. Prior examination of 2017 showed left hip T-score -0.7. Lumbar spine scanning shows T-score -2.3. Prior examination of 2018 showed lumbar T-score -2.0. Left forearm scanning shows T-score -1.3. Prior examination of 2018 showed forearm T-score -1.4. IMPRESSION: Measurements are consistent with osteopenia according to WHO criteria. Lateral vertebral scanogram shows no evidence of a vertebral compression fracture. RADIATION DOSE DELIVERED: Total DLP
== END 2021-10-12 00:35 ==
PROVIDERS: PCP Family Medicine; Visit Provider Nurse Practitioner Family
DX: Z12.31 Encounter for screening mammogram for malignant neoplasm of breast (principal); Z80.3 Family history of malignant neoplasm of breast; M85.88 Other specified disorders of bone density and structure, other site
CPT/HCPCS: 77063; 77067; 77080

== ENCOUNTER → 2021-12-29 07:37 | Outpatient (BNVA) | payer MEDICARE, OTHER, SELFPAY | PROVIDERS: PCP Family Medicine; Referring Provider Family Medicine; Visit Provider Surgery | DX: Z86.010 Personal history of colon polyps (principal); Z12.11 Encounter for screening for malignant neoplasm of colon | CPT/HCPCS: 99242 ==

== ENCOUNTER → 2022-05-23 07:24 | Outpatient (BNVA) | payer MEDICARE, OTHER, SELFPAY | PROVIDERS: PCP Family Medicine; Referring Provider Family Medicine; Visit Provider Surgery | DX: Z12.11 Encounter for screening for malignant neoplasm of colon (principal) ==

== ENCOUNTER 2022-06-12 08:57 | Day surgery (SDC) | payer MEDICARE, OTHER, SELFPAY ==
--- NOTE | 2022-06-11 21:12 | W.PM.DSUDISC ---
Date of service: 06/12/22 Time of Service: 11:00 Discharge Plan Disposition Patient Disposition: Home Condition: Good Discharge Details Reason For Visit: colonoscopy Attending Provider: Kyle Hayes Primary Care Provider: Kathy Earl Home Meds and New Rx's Prescriptions: Continued cholecalciferol (vitamin D3) 10 mcg (400 unit) capsule 10 mcg PO DAILY estradiol [Estrace] 0.01 % (0.1 mg/gram) cream 1 g VG .COMPLEX Qty: 42.5 4RF Rx Instructions: 1 g two to three times weekly losartan 100 MG tablet 100 mg PO DAILY aspirin [Aspir-81] 81 MG tablet,delayed release (DR/EC) 81 mg PO DAILY magnesium L-lactate 84 mg tablet extended release 1 tab PO DAILY Label Comments: Take 1 tablet by mouth once a day Discontinued polyethylene glycol 3350 17 gram/dose powder 238 g PO ONCE Qty: 238 0RF Rx Instructions: take per colonoscopy instructions bisacodyl [Dulcolax (bisacodyl)] 5 mg tablet,delayed release (DR/EC) 5 mg PO ONCE Qty: 4 0RF Rx Instructions: take per colonoscopy instructions Discharge Instructions Instructions: Diverticulitis (GEN), Diverticulosis (DC), Diverticulosis Diet (GEN) Additional Instructions: 1. If tolerated, consume a soft, low fiber diet for 1-2 days. [address] Do not drive, drink alcohol, operate machinery, make critical decisions, or do activities that require coordination or balance for 24 hours. 3. Because air was put into your colon during the procedure, expelling air from your rectum (passing gas or farting) is normal. 4. You may not have a bowel movement for 1-3 days because of the colonoscopy prep. This is normal. 5. Go directly to the emergency room if you notice any of the following: Develop chills (warm to touch), or if you have a thermometer and your temperature is above 101 Difficulty breathing or difficultly swallowing Persistent vomiting Severe abdominal pain, other than gas cramps Severe chest pain Black, tarry stools Any bleeding ? exceeding one tablespoon 6. Call your physician if the site where your intravenous was started becomes red, swollen, painful, and warm to touch. 7. Your physician has reviewed your pre-procedure medications. Please continue to take those medications as previously ordered. You will be given specific information/education regarding any changes to your medications before leaving. Activity:: Activity as Tolerated Diet:: As Tolerated Discharge Orders Discharge Orders: Discharge Order (Routine); Ordered 06/11/22 Ordered By: Kyle Hayes DS: Diagnosis Discharge Diagnosis (1) Screening for colon cancer: Status: Acute Asessment and Plan: Preeti, I performed a complete colonoscopy today. The quality of the prep was excellent. You have extensive diverticulosis, focused mostly around the sigmoid colon (which is extremely common) but also involving other segments of the large intestine as well. The main focus of treatment for diverticulosis focuses on maintaining a balanced diet that is rich in fiber, and staying well-hydrated to avoid any constipation. I did find 1 area of polypoid changes. I performed a polypectomy. I will contact you when the results of that biopsy are available.
--- NOTE | 2022-06-11 21:15 | COLE_ITS ---
Date of service: 06/12/22 Time of Service: 11:02 Colonoscopy Report Date of procedure: 06/12/22 Pre-op diagnosis general: Screening colonoscopy Post-op diagnosis procedure note: other (Diverticulosis, sigmoid colon polyp) Procedure: Colonoscopy with polypectomy Surgeon: Kyle Hayes Anesthesia Type: General:No Airway Estimated blood loss (mL): 10 Pathology: other (Colon polyp at 25 cm) Complications: None Disposition: same day Indications: Preeti is a 77-year-old woman following up for her next screening colonoscopy Prep: Miralax/Dulcolax Procedure Start Time: 10: Procedure End Time: 10:46 Retraction Time: 14 Findings: Extensive, and cavernous sigmoid diverticulosis. Mild pandiverticulosis. Sigmoid colon polyp around 25 cm Procedure Description: After the induction of monitored anesthetic care, and with the patient in left lateral decubitus position, I began by performing an external anorectal exam.? Perineum and skin were normal, as was the anal verge.? There was no evidence of external hemorrhoids.? Next, I performed a digital rectal exam.? I did not appreciate any abnormal findings.? Next, I advanced a colonoscope into the rectal vault.? I performed retroflexion.? There was a fibrosed old internal hem orrhoid.? Using insufflation, I then advanced the colonoscope beyond the rectal folds and into the sigmoid colon before advancing towards the cecum.? There was extensive sigmoid diverticulosis, with large diverticula. The quality of the prep was excellent.? The diverticulosis extended beyond the sigmoid colon, and involves other areas of the descending, transverse, and descending colons. The scope was noted to be in the cecum by identification of the ileocecal valve and appendiceal orifice.? I then began withdrawing the colonoscope using repeated irrigation as necessary for full evaluation of the colonic mucosa. Around 5 cm from the anal verge I identified a 0.5 cm polyp. This was immediately adjacent to a large diverticula. ?It appeared sessile cold forcep polypectomy in character. ?I was able to remove this with a . ?I examined the site, and there was minimal bleeding. ?Once this was completed, I continued to withdraw the scope and examine the remainder of the colonic mucosa.?Once the scope was withdrawn to the level of the rectum, great care was taken to examine portions of the rectal folds.? Finally, the scope was withdrawn and the patient was brought to the same-day surgery recovery unit as the anesthetic wore off. ?The findings and instructions were shared with the patient prior to discharge.
[2022-06-12 09:16] VITALS: BP 129/71; PULSE 84; RESP 16; TEMP 36.4; O2SAT 96
--- NOTE | 2022-06-12 09:42 | ANES.PREOP_ITS ---
General Info Date of Service Date Performed: 06/12/22 Height: 5 ft 4 in Weight: 78.075 kg Body Mass Index (BMI): 29.5 Surgical Procedure: Operation Date: 06/12/22 10:05 Proposed Procedure Side Surgeon p Colonoscopy Kyle Hayes MD Meds Allergies and Home Medications Allergies Allergy/AdvReac Type Severity Reaction Status Date / Time nitrofurantoin Allergy Intermediate unknown Verified 06/11/22 14:39 Home Medication Medication Instructions Recorded aspirin 81 mg tablet,delayed 81 mg PO DAILY 06/01/14 release (Aspir-) losartan 100 mg tablet 100 mg PO DAILY 06/01/14 estradiol 0.01% (0.1 mg/gram) 1 g vaginal .COMPLEX #42.5 grams 11/14/18 vaginal cream (Estrace) cholecalciferol (vitamin D3) 10 10 mcg PO DAILY 12/29/21 mcg (400 unit) capsule magnesium L-lactate 84 mg 1 tab PO DAILY 06/11/22 tablet,extended release Current Visit Medications: Current Medications Generic Name Dose Route Start Last Admin Trade Name Guillermoq PRN Reason Stop Dose Admin Hyoscyamine Sulfate 0.125 mg 06/11/22 21:17 Hyoscyamine 0.125 Mg Sl/Oral/Chew SL DIRECTED PRN Ringer's Solution 1,000 mls @ 80 mls/hr 06/12/22 06:00 IV 07/11/22 23:59 [facility] IV Miscellaneous Supplies 1 each 06/12/22 06:00 Iv Access IV 07/11/22 23:59 DIRECTED KEVIN Ondansetron HCl 4 mg 06/11/22 21:17 Ondansetron 4 Mg/2 Ml Vial IVP Q4H PRN PRN Nausea / Vomiting Sodium Chloride 0 ml 06/12/22 06:00 Normal Saline Flush 10 Ml Syr IV 07/11/22 23:59 PRN PRN Sodium Chloride 0 ml 06/12/22 06:00 Normal Saline 10 Ml Vial IJ 07/11/22 23:59 DIRECTED PRN Sterile Water 0 ml 06/12/22 06:00 Water,Injection,Sterile 10 Ml Vial IJ 07/11/22 23:59 DIRECTED PRN PFSH Active Problems Active Problems: Problem Status Onset Code Adenomatous colon polyp D12.6 Cardiac murmur R01.1 Screening for colon cancer Z12.11 Medical History Medical History Abrasion of cornea, left Acute bronchitis Acute kidney injury superimposed on chronic kidney disease COVID-19 determined by clinical diagnostic criteria DVT prophylaxis Hypertension 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) Osteopenia Sensorineural hearing loss, unilateral, left ear, 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 side (11/22/16) Vaginal atrophy Surgical History Surgical History S/P appendectomy Tobacco Smoking/Tobacco Use Status: Never Alcohol Alcohol Intake: current Alcohol intake frequency: a few times a week Substance Use Substance use: Never Substance use type: does not use Vital Signs and Lab Results Vital Signs Most Recent Vital Signs in EMR: Most Recent Vital Signs Temp Pulse Resp BP Pulse Ox 36.4 C L 84 16 129/71 96 06/12/22 09:16 06/12/22 09:16 06/12/22 09:16 06/12/22 09:16 06/12/22 09:16 Lab Results Blood Type / Crossmatch: No Data to Display Complete Blood Count: No Data to Display Complete Metabolic Panel: No Data to Display Liver Function Panel: No Data to Display Coagulation Panel: No Data to Display Cardiac Panel: No Data to Display Arterial Blood Gas: No Data to Display Venous Blood Gas: No Data to Display Pancreas Panel: No Data to Display Thyroid Panel: No Data to Display Infectious Disease: No Data to Display Blood Cultures: No Data to Display Toxicology Panel: No Data to Display Imaging and Studies Imaging and Studies Study information below may be from another EMR and interpreted by another provider. Please see original notes in EMR for more complete details. EKG Summary: Sinus rhythm...normal P axis, V-rate 60- 99 Normal Electrocardiogram 04/22 Anesthesia Assessment and Plan Anesthesia History Personal History: No History of Anesthesia Complications Family History: No Family History of Anesthesia Complications Exercise Tolerance Exercise Tolerance: Metabolic Equivalents>4 Pertinent Negatives Pertinent Negatives: No Symptoms of GERD Cardiac & Pulmonary Exam Cardiac Exam: Normal S1/S2 Heart Sounds Pulmonary Exam: Clear Bilateral Breath Sounds Implantable Cardiac Device Does patient have a Pacemaker or an ICD?: No Airway Exam Known Difficult Airway: No Mallampati Class: 2 Mouth Opening: Normal (> 3cm) Thyromental Distance: Greater than 3 cm Neck Range of Motion: Full ROM Neck Circumference: Normal Teeth Condition: Normal Dentition ASA Classification ASA Score: ASA 2 Emergency Case?: No NPO Status NPO Status: NPO Clears >2 hours, Solids >8 hours Anesthesia Plan Resuscitation Status: Full Code Anesthesia Technique: General Anesthesia Airway Planned: Natural Airway Monitors Used: Standard Monitors Preoperative Comments:: Pt reports fainting last night in the trip bathroom to bed. Probably prep and dehydration. No chest pain, no previous history
[2022-06-12] MEDS: Lactated Ringers 1,000 ML 80 ML IV (09:50)
[2022-06-12 10:04] VITALS: BMI 29.5
--- NOTE | 2022-06-12 10:43 | BOWEL_PTH ---
PATIENT: Preeti Draper LOC: [facility] U#:[id number] AGE/SX: 77/F ROOM: RE06/12/[address]: Kyle Hayes MD : 1945 BED: DIS: 06/12/2022 SPEC #: [id number] RECD: 06/12/22 12:18 STATUS: REX REQ #: [id number] AWA: 06/12/22 10:[address]: Kyle Hayes DEPT: Surgical Specimen RECD BY: Paty Medeiros ENTERED: 06/12/22 12:19 SP TYPE: Bowel OTHR DR: Kathy Earl Tissues: 1 - BIOPSY BOWEL Procedures: GROSS AND MICRO LEVEL 4 Comments: [id number]
[2022-06-12 11:01] VITALS: BP 100/59; PULSE 77; RESP 16; TEMP 36.1; O2SAT 98
--- NOTE | 2022-06-12 11:17 | W.ANESPOSTOP ---
Postoperative Evaluation Date, Time and Location Date Performed: 06/12/22 Time Performed: 11:12 Patient Location: Day Surgery Unit Vital Signs Most Recent Imported Vital Signs: Most Recent Vital Signs Temp Pulse Resp BP Pulse Ox 36.1 C L 77 16 100/59 L 98 06/12/22 11:01 06/12/22 11:01 06/12/22 11:01 06/12/22 11:01 06/12/22 11:01 Pain Score Most Recent Pain Score: Most Recent Pain Score Pain Level 0 06/12/22 11:01 Assessment Mental Status: Awake (Alert & Oriented to Patient Baseline) Airway and Respiratory Function: Patent airway with normal (patient baseline) respiratory exam Cardiovascular Function: Hemodynamically Stable Hydration Status: Adequately Hydrated Nausea & Vomiting: No Nausea or Vomiting Pain: Pt. Denies Any Pain Peripheral Nerve Block: Patient did not receive a nerve block
[2022-06-12 11:20] VITALS: BP 128/67; PULSE 74; RESP 16; TEMP 36.5; O2SAT 97
== END 2022-06-12 11:55 | disposition home or self-care (01) ==
PROVIDERS: PCP Family Medicine; Visit Provider Surgery
PROC: 0DJD8ZZ Inspection of Lower Intestinal Tract, Via Natural or Artificial Opening Endoscopic (ICD-10-PCS; CPT 45378; principal; 2022-06-12 10:00)
DX: Z12.11 Encounter for screening for malignant neoplasm of colon (principal); K63.5 Polyp of colon; K57.30 Diverticulosis of large intestine without perforation or abscess without bleeding
CPT/HCPCS: 45380; 88305

== ENCOUNTER 2024-10-25 14:20 | Emergency (ER) | payer MEDICARE, OTHER, SELFPAY ==
[2024-10-25 14:30] VITALS: BP 155/71; PULSE 71; RESP 20; TEMP 36.7; O2SAT 95
--- NOTE | 2024-10-25 14:45 | DI.RAD_ITS ---
Exam(s) XR HAND RT COMPLETE EXAM: XR HAND RT COMPLETE CLINICAL HISTORY: fall, 5th metacarpal pain. TECHNIQUE: 2D digital imaging was performed. Three views. COMPARISON: No exams were available for comparison FINDINGS: BONES: No acute fracture is present. No bony destructive lesion is seen. JOINTS: No dislocation present. There are severe degenerative changes at the first carpal metacarpal joint. degenerative changes are also seen at the scaphoid trapezium trapezoid joints and the interp halangeal joints of the index and middle fingers. SOFT TISSUE: Normal. IMPRESSION: Degenerative changes. No acute abnormality. DATA REPOSITORY: RADIATION DOSE DELIVERED:
--- NOTE | 2024-10-25 14:56 | ED.GENADUL_ITS ---
Discharge Plan Disposition Patient Disposition: Home Condition: Stable Discharge Details Clinical Impression: Contusion of right hand Primary Care Provider: Jesica Desai ED Provider: Zunilda Giles Home Meds and New Rx's Prescriptions: No Action cholecalciferol (vitamin D3) 10 mcg (400 unit) capsule 10 mcg PO DAILY estradiol [Estrace] 0.01 % (0.1 mg/gram) cream 1 g VG .COMPLEX Qty: 42.5 4RF Rx Instructions: 1 g two to three times weekly losartan 100 MG tablet 100 mg PO DAILY aspirin [Aspir-81] 81 MG tablet,delayed release (DR/EC) 81 mg PO DAILY Discharge Instructions Instructions: Minor Contusion ED Additional Instructions: You were seen in the emergency department today for evaluation of a hand injury. In our department you had a full physical examination performed, and had an x- ray that did not show any sign of fractures. You were given a splint which you can wear for comfort, though it is safe for you to use your hand. Please continue to use ice and elevation for swelling. Please use therapeutic dosing of Tylenol (acetaminophen) & Advil (ibuprofen) in an alternating fashion as follows: Take 1000mg of Tylenol every 6 hours without missing doses- that is 4 times per day. [place] in between the Tylenol doses, take 600mg of Advil also on a 6 hour schedule, that is also 4 times per day. With this strategy, you will be taking something for fever/pain as often as every 3 hours. The daily maximum dosing of Tylenol is 4000mg, and the daily maximum dosing of Advil is 2400mg. Please note that some common cold medications & prescription pain medications may contain acetaminophen and you need to read OTC drug labels and factor that in to maximum daily doses. Please follow-up with your primary care provider in the next few days to discuss this visit and any symptoms that change, worsen, or persist. Thank you for allowing us to be part of your care. Discharge Data Discharge Date/Time-TO BE ENTERED AT DEPARTURE: 10/25/24 16:16 HPI General Mode of arrival: ambulatory . Date/Time Provider Initiated Documentation: 10/25/24 14:40 . Limitations to Documentation: no limitations . Information obtained by: patient and old records reviewed . HPI Narrative: This is a 79-year-old female patient presenting for evaluation of a right hand injury. The patient reports that 1 week ago she was hiking, and slipped in the mud, falling forward onto an outstretched hand. She states that she had pain in the lateral aspect of her hand that has not improved over the last few days, despite using heat in the area. She reports she has not had any other medications or interventions prior to arrival today. She initially had some discomfort in her elbow and side but these symptoms have resolved. She did not have any preceding dizziness, loss of consciousness, chest pain, and has otherwise been in her normal state of health. Related Data Home Medications ?Medication ?Instructions ?Recorded ?Confirmed aspirin 81 mg tablet,delayed 81 mg PO DAILY 06/01/14 10/25/24 release (Aspir-) losartan 100 mg tablet 100 mg PO DAILY 06/01/14 10/25/24 estradiol 0.01% (0.1 mg/gram) 1 g vaginal .COMPLEX #42.5 grams 11/14/18 10/25/24 vaginal cream (Estrace) cholecalciferol (vitamin D3) 10 10 mcg PO DAILY 12/29/21 10/25/24 mcg (400 unit) capsule Previous Rx's ?Medication ?Instructions ?Recorded estradiol 0.01% (0.1 mg/gram) 1 g vaginal .COMPLEX #42.5 grams 11/14/18 vaginal cream (Estrace) Allergies Allergy/AdvReac Type Severity Reaction Status Date / Time nitrofurantoin Allergy Intermediate unknown Verified 10/25/24 14:29 General Stated Complaint: Orthopedic TREVON: 4 Exam Narrative Exam Narrative: Gen: Awake and alert, in no apparent distress HEENT: Non-icteric sclera Neck: Supple Lungs: No apparent respiratory distress, normal respiratory effort. CV: Appears well perfused Abdomen: Non-distended MSK: Moves 4 extremities without apparent limitation in ROM. Tenderness to palpation over the right fifth metacarpal region without deformity or overlying skin break. No ecchymosis, patient has full range of motion against resistance of the fingers and thumb in all directions. She has no evidence of rotation or asymmetry with flexion of the fingers towards the palm. Her wrist and elbow are atraumatic, no anatomical snuffbox tenderness. CSM's intact distal to this injury. Skin: Visualized skin without rashes, cyanosis. Neuro: Normal Gait, no obvious focal deficits or facial asymmetry. Speaks in fu ll, clear sentences. Psych: Appropriate for situation. Course Vital Signs Vital signs: Vital Signs Temperature 36.7 C 10/25/24 14:30 Pulse 71 10/25/24 14:30 Respiratory Rate 20 10/25/24 14:30 Blood Pressure 155/71 H 10/25/24 14:30 Pulse Oximetry 95 10/25/24 14:30 Temperature 36.7 C 10/25/24 14:30 Temperature Source Oral 10/25/24 14:30 Pulse 71 10/25/24 14:30 Respiratory Rate 20 10/25/24 14:30 Blood Pressure 155/71 H 10/25/24 14:30 Blood Pressure Position Sitting 10/25/24 14:30 Pulse Oximetry 95 10/25/24 14:30 Oxygen Delivery Method Room Air 10/25/24 14:30 Oxygen Flow Rate 0 10/25/24 14:30 Pain Level 5 10/25/24 14:30 Medical Decision Making This is a 79-year-old female patient presenting for evaluation of a hand injury. Reassuringly, this is an isolated injury and the patient had a mechanical fall without concern for medical etiology such as syncope, vasovagal syndrome, seizure, CVA, arrhythmia, or ACS. Differential includes but is not limited to fracture, dislocation, contusion, sprain/strain. No evidence for neurovascular derangement. We obtained an x-ray, patient was offered Tylenol and ibuprofen for management of pain which she declined, but she did receive an ice pack and a pillow for elevation. I have reviewed the x-ray imaging, which shows no evidence of fracture, dislocation, or other acute osseous abnormality. She does have some degenerative changes. I provided her with an Velcro ulnar splint for support, and counseled her to use conservative management including Tylenol, ibuprofen, ice and elevation. At this time, the patient has had a full medical evaluation and is safe for discharge to home. They are hemodynamically stable, ambulatory, and tolerating PO. They are understanding of the follow-up plan and return precautions. They left our facility without incident. Zunilda Giles MD Quality:SDOH Health Related Social Needs: No Data to Display PFSH All Active Problems (Updated 10/25/24 @ 15:57 by Zunilda Giles MD) Contusion of right hand (Acute) Impacted cerumen, bilateral (Acute) Central perforation of tympanic membrane, right ear (Acute) Sensorineural hearing loss, bilateral (Acute) Inflammatory polyps (Acute) Adenomatous colon polyp (Acute) Cardiac murmur (Acute) Screening for colon cancer (Acute) Medical History (Updated 10/25/24 @ 15:57 by Zunilda Giles MD) Osteopenia Abrasion of cornea, left Acute bronchitis DVT prophylaxis Acute kidney injury superimposed on chronic kidney disease COVID-19 determined by clinical diagnostic criteria 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, unilateral, left ear, 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 side (11/22/16) Vaginal atrophy Hypertension Surgical History (Updated 06/18/23 @ 16:32 by Oliver Sanchez MD) History of tympanoplasty History of tonsillectomy and adenoidectomy History of colonoscopy (~06/2022) S/P appendectomy Family History Sister Breast cancer Social History Smoking/Tobacco Use Status: Never Smoking risk assessment performed?: Yes Alcohol Intake: current Alcohol Intake frequency: 0-2 drinks per day Alcohol type: hard liquor Drug use: Never Substance use type: does not use current occupation: [employer] Teacher - [employer] Do you feel safe at home: Yes Do you feel safe in your relationship?: Yes
--- NOTE | 2024-10-25 15:32 | DI.VRAD_ITS ---
PROCEDURE INFORMATION: Exam: XR Right Hand Exam date and time: 10/25/2024 3:00 PM Age: 79 years old Clinical indication: Pain; Hand; Right TECHNIQUE: Imaging protocol: Radiologic exam of the right hand. Views: 3 or more views. COMPARISON: No relevant prior studies available. FINDINGS: Bones/joints: Severe degenerative disease of the 1st carpometacarpal joint. Severe degenerative disease of the STT joint. Moderate degenerative disease of the interphalangeal joints of the fingers, most pronounced at the index and middle fingers DIP joints. No osseous erosions. No acute fracture or dislocation. No suspicious osseous lesion. Corticated bone fragment at the tip of the ulnar styloid, from prior injury. Calcification around the proximal interphalangeal joint of the index finger, suggestive of calcific periarthritis. Soft tissues: Normal. IMPRESSION: No acute fracture or dislocation. Dictated and Authenticated by: Tyree Lawler MD. Orderin [facility] Usman Mauro MD
== END 2024-10-25 16:16 | disposition home or self-care (01) ==
PROVIDERS: Emergency Provider Emergency Medicine; PCP Family Medicine
DX: S60.221A Contusion of right hand, initial encounter (principal); W18.39XA Other fall on same level, initial encounter; Y93.01 Activity, walking, marching and hiking; Y92.838 Other recreation area as the place of occurrence of the external cause
CPT/HCPCS: 99283; 73130

== ENCOUNTER → 2025-04-23 02:41 | Outpatient (CLI) | payer MEDICARE, OTHER, SELFPAY ==
--- NOTE | 2025-04-23 | DI.MAMMO_ITS ---
Exam(s) MAMMO SCREENING EXAM: MAMMO SCREENING CLINICAL HISTORY: Z12.31 Screening TECHNIQUE: Mammograms were interpreted according to the usual protocol including computer analysis with CAD system, tomosynthesis and C-view imaging. COMPARISON: 2016- 2021 FINDINGS: The breasts are composed of heterogeneously dense fibroglandular densities, Breast Density category C. No suspicious masses or suspicious microcalcifications are seen. No skin thickening or abnormal axillary lymph nodes are seen. There has been no significant change from prior exams. IMPRESSION: BI-RADS Category 1, Negative mammogram. Yearly screening mammography is recommended. Breast Density: Category C - The breasts are heterogeneously dense, which may obscure small masses. Breast density Category C or D implies that the patient has dense breast tissue. Dense breast tissue can make it harder to find cancer on a mammogram. Dense breast tissue is also associated with an increased risk of breast cancer. This information about the result of the mammogram report was provided to the patient to raise their awareness. Use this report when you speak with the patient about their risks for breast cancer, which includes their family history. At that time, you may recommend additional screening tests (Ultrasound or MRI) as these tests may add significant information. A negative radiographic report should not delay biopsy if a dominant or clinically suspicious mass is present. Up to ten percent of cancers are not identified on mammography. A negative report may reinforce clinical impression. Adenosis and dense breasts may obscure an underlying neoplasm. False positive reports average 6 to 10%.
--- NOTE | 2025-04-23 | DI.DEXA_ITS ---
Exam(s) XR DEXA BONE DENSITY W/WO SINAN EXAM: XR DEXA BONE DENSITY W/WO SINAN CLINICAL HISTORY: M85.89 Osteopenai,Other specified disorders bone density and structure TECHNIQUE: Routine DEXA evaluation of the lumbar spine, hip, or forearm. COMPARISON: CR XR DEXA BONE DENSITY W/WO SINAN from 10/12/2021 FINDINGS: Performed on a Hologic unit. Lateral image: No compression fracture evident. Lumbar Spine total T-score: -2.5 which is now in the osteoporosis range. The prior reading in October 2021 was -2.3 Hip total T-score:-0.8 which is in normal range.. The prior reading in October 2021 was -0.9. Independent reading at the level of the femoral neck yields T-score of -2.2 which is osteopenia range. The prior reading in October 2021 was -2.0 which was also osteopenia range at that time. Forearm total T-score: -1.7 which is osteopenia range. The prior reading in October 2021 was -1.3 which was also osteopenia range. IMPRESSION: Bone mineral density measures in the osteopenia range for the wrist/forearm and hip/femoral neck. Fracture risk at these levels is moderate. Bone mineral density measures in the osteoporosis range for the lumbar spine for fracture risk at this level is high. Note: Any spine fracture indicates 5x risk for subsequent spine fracture and 2x risk for subsequent hip fracture. World Health Organization criteria for BMD interpretation classify patients: Normal...... T- Score at or above -1.0 Osteopenic... T- Score between -1.0 and -2.5 Osteoporosis... T-Score at or below -2.5
== END ==
LOC: DI 02:41
PROVIDERS: PCP Family Medicine; Visit Provider Nurse Practitioner
DX: M85.89 Other specified disorders of bone density and structure, multiple sites (principal)
CPT/HCPCS: 77063; 77067; 77080